=== PATIENT | female | born 1960 | race Caucasian/White ===

== ENCOUNTER 2018-09-27 17:10 | Emergency (ER) | payer OTHER ==
[2018-09-27] MEDS: SOD CHLORIDE 0.9% 1,000 ML IV (18:39)
[2018-09-27] MEDS: HYDROmorphONE 1 MG/ML SYG IV (18:39)
[2018-09-27] MEDS: ONDANSETRON 4 MG INJ IV (18:39)
[2018-09-27 18:53] LABS: ADD MAN DIFF? NO
[2018-09-27 18:56] LABS: BASOPHIL # 0.1 10^3/ul (0.0-0.1); EOSINOPHILS # 0.2 10^3/ul (0.0-0.5); EOSINOPHILS % 1.9 % (0.0-7.0); HEMATOCRIT 44.9 % (37.0-47.0); HEMOGLOBIN 13.8 g/dl (12.0-16.0); LYMPHOCYTES # 1.2 10^3/ul (0.8-2.9); LYMPHOCYTES % 14.6 % (15.0-51.0); MEAN CORPUSCULAR HEMOGLOBIN 25.7 pg (29.0-33.0); MEAN CORPUSCULAR HGB CONC 30.7 g/dl (32.0-37.0); MEAN CORPUSCULAR VOLUME 83.5 fl (82.0-101.0); MEAN PLATELET VOLUME 12.2 fl (7.4-10.4); MONOCYTE # 0.8 10^3/ul (0.3-0.9); MONOCYTES % 9.6 % (0.0-11.0); NEUTROPHIL # 6.1 10^3/ul (1.6-7.5); NEUTROPHILS % 72.4 % (39.0-77.0); PLATELET COUNT 232 10^3/UL (140-415); RED BLOOD COUNT 5.38 10^6/ul (4.20-5.40); RED CELL DISTRIBUTION WIDTH 14.1 % (11.5-14.5)
[2018-09-27 18:56] LABS: WHITE BLOOD COUNT 8.4 10^3/ul (4.8-10.8)
[2018-09-27 19:01] LABS: ADD UMIC NO; UR ASCORBIC ACID NEGATIVE (NEGATIVE); UR BILIRUBIN (Dip) NEGATIVE (NEGATIVE); UR BLOOD (Dip) NEGATIVE (NEGATIVE); UR CLARITY CLEAR (CLEAR); UR COLOR STRAW (YELLOW); UR GLUCOSE (Dip) 3+ mg/dL (NEGATIVE); UR KETONES (Dip) NEGATIVE (NEGATIVE); UR LEUKOCYTE ESTERASE (Dip) NEGATIVE Leu/ul (NEGATIVE); UR NITRITE (Dip) NEGATIVE (NEGATIVE); UR SPECIFIC GRAVITY (Dip) 1.006 (1.003-1.030); UR TOTAL PROTEIN (Dip) NEGATIVE (NEGATIVE); UR UROBILINOGEN (Dip) NEGATIVE (NEGATIVE)
[2018-09-27 19:16] LABS: ALANINE AMINOTRANSFERASE 28 IU/L (13-69); ALBUMIN 4.2 g/dl (3.3-4.9); ALBUMIN/GLOBULIN RATIO 1.23; ALKALINE PHOSPHATASE 141 IU/L (42-121); ANION GAP 12 (5-13); ASPARTATE AMINO TRANSFERASE 25 IU/L (15-46); BILIRUBIN,INDIRECT 0.2 mg/dl (0-1.1); BILIRUBIN,TOTAL 0.2 mg/dl (0.2-1.3); BLOOD UREA NITROGEN 16 mg/dl (7-20); CARBON DIOXIDE 32 mmol/L (21-31); CHLORIDE 103 mmol/L (97-110); CREATININE 0.81 mg/dl (0.44-1.00); Estimated GFR > 60 mL/min (>60); GLUCOSE 101 mg/dl (70-220); POTASSIUM 3.9 mmol/L (3.5-5.1); SODIUM 147 mmol/L (135-144); TOTAL PROTEIN 7.6 g/dl (6.1-8.1)
[2018-09-27] MEDS: SOD CHLORIDE 0.9% 100 ML (19:48)
[2018-09-27] MEDS: IOHEXOL 300MG/ML 150 ML BTL (19:48)
== END 2018-09-27 21:00 | disposition home or self-care (01) ==
LOC: E/R 17:10
DX: R19.03 Right lower quadrant abdominal swelling, mass and lump (principal); I10 Essential (primary) hypertension; Z79.82 Long term (current) use of aspirin
CPT/HCPCS: 36415; 74177; 80053; 81003; 85025; 96374; 96375; 99285-25

== ENCOUNTER 2018-11-20 09:39 | Emergency (ER) | payer OTHER ==
[2018-11-20] MEDS: ONDANSETRON 4 MG INJ IV (12:41)
[2018-11-20] MEDS: FAMOTIDINE 20 MG INJ IV (12:41)
[2018-11-20] MEDS: SOD CHLORIDE 0.9% 1,000 ML IV (12:41)
[2018-11-20] MEDS: morphine 4 MG/ML VIAL IV ×2 (12:42→13:43)
[2018-11-20 12:43] LABS: ADD MAN DIFF? NO
[2018-11-20 12:46] LABS: BASOPHIL # 0.1 10^3/ul (0.0-0.1); BASOPHILS % 0.6 % (0.0-2.0); EOSINOPHILS # 0.1 10^3/ul (0.0-0.5); EOSINOPHILS % 1.1 % (0.0-7.0); HEMATOCRIT 39.6 % (37.0-47.0); HEMOGLOBIN 12.4 g/dl (12.0-16.0); MEAN CORPUSCULAR HEMOGLOBIN 25.6 pg (29.0-33.0); MEAN CORPUSCULAR HGB CONC 31.3 g/dl (32.0-37.0); MEAN CORPUSCULAR VOLUME 81.6 fl (82.0-101.0); MEAN PLATELET VOLUME 11.8 fl (7.4-10.4); MONOCYTE # 0.9 10^3/ul (0.3-0.9); MONOCYTES % 10.6 % (0.0-11.0); NEUTROPHIL # 6.7 10^3/ul (1.6-7.5); NEUTROPHILS % 76.1 % (39.0-77.0); PLATELET COUNT 231 10^3/UL (140-415); RED BLOOD COUNT 4.85 10^6/ul (4.20-5.40); RED CELL DISTRIBUTION WIDTH 15.1 % (11.5-14.5)
[2018-11-20 12:46] LABS: WHITE BLOOD COUNT 8.8 10^3/ul (4.8-10.8)
[2018-11-20 12:53] LABS: ADD UMIC YES; UR ASCORBIC ACID NEGATIVE (NEGATIVE); UR BACTERIA FEW /HPF (NONE SEEN); UR BILIRUBIN (Dip) NEGATIVE (NEGATIVE); UR BLOOD (Dip) 2+ mg/dL (NEGATIVE); UR CLARITY CLEAR (CLEAR); UR COLOR STRAW (YELLOW); UR GLUCOSE (Dip) 3+ mg/dL (NEGATIVE); UR KETONES (Dip) NEGATIVE (NEGATIVE); UR LEUKOCYTE ESTERASE (Dip) NEGATIVE Leu/ul (NEGATIVE); UR NITRITE (Dip) NEGATIVE (NEGATIVE); UR RBC 6 /HPF (0-5); UR SPECIFIC GRAVITY (Dip) 1.008 (1.003-1.030); UR SQUAMOUS EPITHELIAL CELL FEW /HPF (FEW); UR TOTAL PROTEIN (Dip) NEGATIVE (NEGATIVE); UR UROBILINOGEN (Dip) NEGATIVE (NEGATIVE); UR WBC 2 /HPF (0-5)
[2018-11-20 13:05] LABS: ALANINE AMINOTRANSFERASE 50 IU/L (13-69); ALBUMIN 3.9 g/dl (3.3-4.9); ALBUMIN/GLOBULIN RATIO 1.05; ALKALINE PHOSPHATASE 135 IU/L (42-121); ANION GAP 9 (5-13); ASPARTATE AMINO TRANSFERASE 34 IU/L (15-46); BILIRUBIN,INDIRECT 0.3 mg/dl (0-1.1); BILIRUBIN,TOTAL 0.3 mg/dl (0.2-1.3); BLOOD UREA NITROGEN 24 mg/dl (7-20); CALCIUM 8.8 mg/dl (8.4-10.2); CARBON DIOXIDE 26 mmol/L (21-31); CHLORIDE 107 mmol/L (97-110); CREATININE 1.19 mg/dl (0.44-1.00); Estimated GFR 47 mL/min (>60); GLUCOSE 94 mg/dl (70-220); LIPASE 121 U/L (23-300); POTASSIUM 3.5 mmol/L (3.5-5.1); SODIUM 142 mmol/L (135-144); TOTAL PROTEIN 7.6 g/dl (6.1-8.1)
[2018-11-20] MEDS: SOD CHLORIDE 0.9% 100 ML (13:21)
[2018-11-20] MEDS: IODIXANOL LOCM 100 ML BTL (13:21)
== END 2018-11-20 16:15 | disposition home or self-care (01) ==
LOC: E/R 09:39
DX: R19.00 Intra-abdominal and pelvic swelling, mass and lump, unspecified site (principal); R33.9 Retention of urine, unspecified; I10 Essential (primary) hypertension; E11.9 Type 2 diabetes mellitus without complications; Z79.82 Long term (current) use of aspirin; Z85.43 Personal history of malignant neoplasm of ovary; Z85.42 Personal history of malignant neoplasm of other parts of uterus
CPT/HCPCS: 36415; 74177; 80053; 81001; 83690; 85025; 96374; 96375; 96376; 99285-25

== ENCOUNTER 2018-11-25 01:50 | Inpatient (IN) | payer OTHER ==
[2018-11-25 02:31] LABS: ADD MAN DIFF? NO
[2018-11-25 02:33] LABS: BASOPHILS % 0.3 % (0.0-2.0); EOSINOPHILS # 0.2 10^3/ul (0.0-0.5); EOSINOPHILS % 3.4 % (0.0-7.0); HEMATOCRIT 39.4 % (37.0-47.0); LYMPHOCYTES # 0.6 10^3/ul (0.8-2.9); LYMPHOCYTES % 8.5 % (15.0-51.0); MEAN CORPUSCULAR HEMOGLOBIN 25.4 pg (29.0-33.0); MEAN CORPUSCULAR HGB CONC 30.5 g/dl (32.0-37.0); MEAN CORPUSCULAR VOLUME 83.5 fl (82.0-101.0); MEAN PLATELET VOLUME 11.9 fl (7.4-10.4); MONOCYTE # 0.9 10^3/ul (0.3-0.9); MONOCYTES % 12.1 % (0.0-11.0); NEUTROPHIL # 5.3 10^3/ul (1.6-7.5); NEUTROPHILS % 75.3 % (39.0-77.0); PLATELET COUNT 218 10^3/UL (140-415); RED BLOOD COUNT 4.72 10^6/ul (4.20-5.40); RED CELL DISTRIBUTION WIDTH 15.2 % (11.5-14.5)
[2018-11-25 02:41] LABS: ADD UMIC YES; UR ASCORBIC ACID NEGATIVE (NEGATIVE); UR BACTERIA FEW /HPF (NONE SEEN); UR BILIRUBIN (Dip) NEGATIVE (NEGATIVE); UR BLOOD (Dip) 3+ mg/dL (NEGATIVE); UR CLARITY CLEAR (CLEAR); UR COLOR STRAW (YELLOW); UR GLUCOSE (Dip) 3+ mg/dL (NEGATIVE); UR KETONES (Dip) NEGATIVE (NEGATIVE); UR LEUKOCYTE ESTERASE (Dip) 2+ Leu/ul (NEGATIVE); UR NITRITE (Dip) NEGATIVE (NEGATIVE); UR RBC 83 /HPF (0-5); UR SPECIFIC GRAVITY (Dip) 1.005 (1.003-1.030); UR TOTAL PROTEIN (Dip) NEGATIVE (NEGATIVE); UR UROBILINOGEN (Dip) NEGATIVE (NEGATIVE); UR WBC 14 /HPF (0-5)
[2018-11-25] MEDS: morphine 4 MG/ML VIAL IV (02:46)
[2018-11-25] MEDS: ONDANSETRON 4 MG INJ IV (02:46)
[2018-11-25] MEDS: SOD CHLORIDE 0.9% 500 ML IV (02:46)
[2018-11-25 02:53] LABS: ALANINE AMINOTRANSFERASE 48 IU/L (13-69); ALBUMIN 3.9 g/dl (3.3-4.9); ALKALINE PHOSPHATASE 121 IU/L (42-121); ANION GAP 9 (5-13); ASPARTATE AMINO TRANSFERASE 30 IU/L (15-46); BILIRUBIN,INDIRECT 0.3 mg/dl (0-1.1); BILIRUBIN,TOTAL 0.3 mg/dl (0.2-1.3); BLOOD UREA NITROGEN 22 mg/dl (7-20); CALCIUM 8.8 mg/dl (8.4-10.2); CARBON DIOXIDE 27 mmol/L (21-31); CHLORIDE 108 mmol/L (97-110); CREATININE 2.06 mg/dl (0.44-1.00); Estimated GFR 25 mL/min (>60); GLUCOSE 108 mg/dl (70-220); LIPASE 61 U/L (23-300); POTASSIUM 4.3 mmol/L (3.5-5.1); SODIUM 144 mmol/L (135-144); TOTAL PROTEIN 7.8 g/dl (6.1-8.1)
[2018-11-25] MEDS: LEVOFLOXACIN 500MG/D5W (PMX) 100 ML IVPB (04:36)
[2018-11-25] MEDS ORDERED: ONDANSETRON 4 MG INJ IV (11:00)
[2018-11-25] MEDS ORDERED: NACL 0.9% 3 ML SYG IV ×2 (11:00)
[2018-11-25] MEDS ORDERED: FAMOTIDINE 20 MG TAB PO (11:00)
[2018-11-25] MEDS ORDERED: ACETAMINOPHEN 325 MG TAB PO (11:00)
[2018-11-25] MEDS ORDERED: INSULIN ASPART [NOVOLOG] 3 ML PEN SC ×3 (12:00→13:00)
[2018-11-25] MEDS: INSULIN ASPART [NOVOLOG] 3 ML PEN SC ×3 (12:00→20:34)
[2018-11-25] MEDS: FAMOTIDINE 20 MG TAB PO (12:13)
[2018-11-25] MEDS: SOD CHLORIDE 0.9% 1,000 ML IV (12:14)
[2018-11-25] MEDS ORDERED: GLUCAGON 1 MG INJ IM (12:30)
[2018-11-25] MEDS ORDERED: GLUCOSE GEL 15 GRAM TUBE PO ×2 (12:30)
[2018-11-25] MEDS ORDERED: DEXTROSE 50% 50 ML SYRINGE IV ×2 (12:30)
[2018-11-25] MEDS ORDERED: GLUCOSE GEL 15 GRAM TUBE BUCCAL (12:30)
[2018-11-25 12:37] LABS: CANCER ANTIGEN 125 28.7 U/ml (0.0-35.0)
[2018-11-25 15:41] LABS: CREATININE,URINE RANDOM 35.09 mg/dl (20-320); PROTEIN/CREAT RATIO 1.13 RATIO
[2018-11-25] MEDS: morphine 2 MG INJ IV (15:56)
[2018-11-25 16:10] LABS: SODIUM,URINE RANDOM 94 mmol/L (30-90)
[2018-11-26] MEDS: SOD CHLORIDE 0.9% 1,000 ML IV ×3 (00:11→13:42)
[2018-11-26] MEDS: ACCU-CHEK XX (02:00)
[2018-11-26 07:27] LABS: HEMOGLOBIN A1C 5.8 % (0-5.9)
[2018-11-26 07:31] LABS: ANION GAP 7 (5-13); BLOOD UREA NITROGEN 18 mg/dl (7-20); CALCIUM 8.5 mg/dl (8.4-10.2); CARBON DIOXIDE 25 mmol/L (21-31); CHLORIDE 113 mmol/L (97-110); CREATININE 1.82 mg/dl (0.44-1.00); Estimated GFR 29 mL/min (>60); GLUCOSE 92 mg/dl (70-220); POTASSIUM 4.6 mmol/L (3.5-5.1); SODIUM 145 mmol/L (135-144)
[2018-11-26 07:31] LABS: URIC ACID 6.3 mg/dl (3.1-7.9)
[2018-11-26 07:34] LABS: CREATINE KINASE 23 IU/L (23-200)
[2018-11-26] MEDS: INSULIN ASPART [NOVOLOG] 3 ML PEN SC ×4 (08:00→20:48)
[2018-11-26] MEDS: FAMOTIDINE 20 MG TAB PO (08:48)
[2018-11-26] MEDS: POLYETHYLENE GLYCOL 17 GM PACKET PO ×2 (09:08→20:48)
[2018-11-26] MEDS: morphine 2 MG INJ IV ×2 (11:56→23:07)
[2018-11-26] MEDS: DOCUSATE SODIUM 100 MG CAP PO (18:16)
[2018-11-27] MEDS: ACCU-CHEK XX (02:00)
[2018-11-27] MEDS: SOD CHLORIDE 0.9% 1,000 ML IV ×2 (03:27→16:19)
[2018-11-27] MEDS: INSULIN ASPART [NOVOLOG] 3 ML PEN SC ×4 (08:00→20:41)
[2018-11-27] MEDS: FAMOTIDINE 20 MG TAB PO (08:43)
[2018-11-27] MEDS: POLYETHYLENE GLYCOL 17 GM PACKET PO ×2 (08:43→20:40)
[2018-11-27 08:49] LABS: ANION GAP 9 (5-13); BLOOD UREA NITROGEN 16 mg/dl (7-20); CALCIUM 8.4 mg/dl (8.4-10.2); CARBON DIOXIDE 24 mmol/L (21-31); CHLORIDE 112 mmol/L (97-110); CREATININE 1.94 mg/dl (0.44-1.00); Estimated GFR 27 mL/min (>60); GLUCOSE 94 mg/dl (70-220); POTASSIUM 4.3 mmol/L (3.5-5.1); SODIUM 145 mmol/L (135-144)
[2018-11-27] MEDS: morphine 2 MG INJ IV ×3 (10:11→21:13)
[2018-11-28] MEDS: ACCU-CHEK XX (02:00)
[2018-11-28 05:26] LABS: ANION GAP 9 (5-13); BLOOD UREA NITROGEN 17 mg/dl (7-20); CALCIUM 8.4 mg/dl (8.4-10.2); CARBON DIOXIDE 24 mmol/L (21-31); CHLORIDE 111 mmol/L (97-110); CREATININE 1.94 mg/dl (0.44-1.00); Estimated GFR 27 mL/min (>60); GLUCOSE 108 mg/dl (70-220); SODIUM 144 mmol/L (135-144)
[2018-11-28] MEDS: SOD CHLORIDE 0.9% 1,000 ML IV (05:28)
[2018-11-28] MEDS ORDERED: CEFAZOLIN 1 GM INJ (07:00)
[2018-11-28] MEDS ORDERED: DEXAMETHASONE 4 MG/ML 5 ML INJ (07:00)
[2018-11-28] MEDS ORDERED: METOCLOPRAMIDE 10 MG INJ (07:00)
[2018-11-28] MEDS ORDERED: ONDANSETRON 4 MG INJ (07:00)
[2018-11-28] MEDS: INSULIN ASPART [NOVOLOG] 3 ML PEN SC ×4 (08:00→21:00)
[2018-11-28] MEDS: POLYETHYLENE GLYCOL 17 GM PACKET PO ×2 (09:00→21:13)
[2018-11-28] MEDS: FAMOTIDINE 20 MG TAB PO (09:00)
[2018-11-28] MEDS: morphine 2 MG INJ IV ×3 (11:13→21:17)
[2018-11-28] MEDS ORDERED: FENTAnyl 50 MCG/ML VIAL (12:21)
[2018-11-28] MEDS ORDERED: MIDAZOLAM 1 MG/ML 2 ML INJ (12:22)
[2018-11-28] MEDS ORDERED: PROPOFOL 20 ML (12:28)
[2018-11-28] MEDS ORDERED: LIDOCAINE 2% (SDV) 5 ML INJ (12:28)
[2018-11-28] MEDS ORDERED: ONDANSETRON 4 MG INJ IV (12:30)
[2018-11-28] MEDS ORDERED: LABETALOL HCL 20MG INJ IV (12:30)
[2018-11-28] MEDS ORDERED: DIPHENHYDRAMINE 50 MG INJ IV (12:30)
[2018-11-28] MEDS ORDERED: LEVALBUTEROL (NEB) 1.25 MG/0.5 ML AMP HHN (12:30)
[2018-11-28] MEDS ORDERED: HYDROmorphONE 1 MG/5 ML IV SYRINGE IV ×3 (12:30)
[2018-11-28] MEDS ORDERED: FENTAnyl 50 MCG/ML VIAL IV (12:30)
[2018-11-28] MEDS ORDERED: IOHEXOL 300MG/ML 30 ML BTL (12:35)
[2018-11-28] MEDS: IOHEXOL 300MG/ML 30 ML BTL INJ (12:45)
[2018-11-28] MEDS: hydrALAzine 20 MG INJ IV (14:15)
[2018-11-28] MEDS: FENTAnyl 50 MCG/ML VIAL IV (15:07)
[2018-11-29] MEDS: ACCU-CHEK XX (02:00)
[2018-11-29] MEDS: SOD CHLORIDE 0.9% 1,000 ML IV ×3 (04:07→18:33)
[2018-11-29] MEDS: morphine 2 MG INJ IV ×2 (05:54→15:26)
[2018-11-29 07:31] LABS: ANION GAP 10 (5-13); BLOOD UREA NITROGEN 18 mg/dl (7-20); CALCIUM 8.4 mg/dl (8.4-10.2); CARBON DIOXIDE 24 mmol/L (21-31); CHLORIDE 109 mmol/L (97-110); CREATININE 1.77 mg/dl (0.44-1.00); Estimated GFR 30 mL/min (>60); GLUCOSE 107 mg/dl (70-220); SODIUM 143 mmol/L (135-144)
[2018-11-29] MEDS: INSULIN ASPART [NOVOLOG] 3 ML PEN SC ×4 (08:00→20:29)
[2018-11-29] MEDS: POLYETHYLENE GLYCOL 17 GM PACKET PO ×2 (08:18→20:29)
[2018-11-29] MEDS: FAMOTIDINE 20 MG TAB PO (08:18)
[2018-11-30] MEDS: morphine 2 MG INJ IV ×3 (01:09→17:02)
[2018-11-30] MEDS: ACCU-CHEK XX (02:00)
[2018-11-30] MEDS: INSULIN ASPART [NOVOLOG] 3 ML PEN SC ×4 (08:00→20:42)
[2018-11-30] MEDS: FAMOTIDINE 20 MG TAB PO (08:27)
[2018-11-30] MEDS: POLYETHYLENE GLYCOL 17 GM PACKET PO ×2 (08:28→20:44)
[2018-11-30] MEDS: SOD CHLORIDE 0.9% 1,000 ML IV ×2 (08:30→22:30)
[2018-11-30] MEDS: HYDROCODONE/APAP (5/325) TAB PO (12:24)
[2018-11-30] MEDS: MAGNESIUM CITRATE 300 ML BTL PO (13:25)
[2018-11-30] MEDS: ONDANSETRON 4 MG INJ IV (16:58)
[2018-12-01] MEDS: morphine 2 MG INJ IV ×2 (01:18→11:48)
[2018-12-01] MEDS: ACCU-CHEK XX (02:00)
[2018-12-01] MEDS ORDERED: ROCURONIUM 50 MG INJ ×2 (07:00→19:09)
[2018-12-01] MEDS: INSULIN ASPART [NOVOLOG] 3 ML PEN SC ×3 (08:00→17:17)
[2018-12-01] MEDS: FAMOTIDINE 20 MG TAB PO (08:55)
[2018-12-01] MEDS: POLYETHYLENE GLYCOL 17 GM PACKET PO ×2 (08:56→21:00)
[2018-12-01] MEDS: DEXTROSE 5%-0.45% NACL 1,000 ML IV (11:48)
[2018-12-01] MEDS: HYDROCODONE/APAP (5/325) TAB PO (12:49)
[2018-12-01] MEDS ORDERED: VASOPRESSIN 20 UNITS INJ (16:42)
[2018-12-01] MEDS ORDERED: FENTAnyl 50 MCG/ML VIAL (18:19)
[2018-12-01] MEDS ORDERED: MIDAZOLAM 1 MG/ML 2 ML INJ (18:19)
[2018-12-01] MEDS ORDERED: METOCLOPRAMIDE 10 MG INJ IV (18:30)
[2018-12-01] MEDS ORDERED: FENTAnyl 50 MCG/ML VIAL IV ×2 (18:30)
[2018-12-01] MEDS ORDERED: MEPERIDINE 25 MG INJ IV (18:30)
[2018-12-01] MEDS ORDERED: DIPHENHYDRAMINE 50 MG INJ IV ×2 (18:30→21:00)
[2018-12-01] MEDS ORDERED: ONDANSETRON 4 MG INJ IV (18:30)
[2018-12-01] MEDS ORDERED: ALBUTEROL 0.083% (NEB) 2.5 MG/3 ML AMP HHN (18:30)
[2018-12-01] MEDS ORDERED: HYDROmorphONE 1 MG/5 ML IV SYRINGE IV ×3 (18:30)
[2018-12-01] MEDS ORDERED: ROPIVACAINE 0.2% 20 ML VIAL ×2 (18:45→20:13)
[2018-12-01] MEDS ORDERED: LABETALOL HCL 20MG INJ (19:05)
[2018-12-01] MEDS ORDERED: morphine SULFATE/PF (10 MG/10 ML) INJ (19:07)
[2018-12-01] MEDS ORDERED: CEFAZOLIN 1 GM INJ (19:09)
[2018-12-01] MEDS ORDERED: PROPOFOL 20 ML (19:09)
[2018-12-01] MEDS ORDERED: GLYCOPYRROLATE 0.4 MG INJ (19:09)
[2018-12-01] MEDS ORDERED: SUCCINYLCHOLINE CHLORIDE 100 MG/5 ML SYG IV (19:09)
[2018-12-01] MEDS ORDERED: LIDOCAINE 100 MG SYRINGE (19:09)
[2018-12-01] MEDS ORDERED: NEOSTIGMINE 3 MG/3 ML SYRINGE (19:09)
[2018-12-01] MEDS ORDERED: hydrALAzine 20 MG INJ (19:22)
[2018-12-01] MEDS ORDERED: metroNIDAZOLE 500 MG/NS (PMX) 100 ML IVPB (20:21)
[2018-12-01] MEDS ORDERED: SUGAMMADEX SODIUM 200 MG/2 ML VIAL IV (20:27)
[2018-12-01] MEDS ORDERED: PROVENTIL HFA 6.7GM INHALER (20:32)
[2018-12-01] MEDS ORDERED: INSULIN ASPART [NOVOLOG] 3 ML PEN SC (21:00)
[2018-12-01] MEDS: Insulin NOVOLOG SS MILD Algorithm (NPO/TPN/ENTERAL FEEDS) SC (21:00)
[2018-12-01] MEDS ORDERED: HYDROCODONE/APAP (5/325) TAB PO (21:00)
[2018-12-01 21:03] LABS: ADD MAN DIFF? NO
[2018-12-01 21:07] LABS: WHITE BLOOD COUNT 9.1 10^3/ul (4.8-10.8)
[2018-12-01 21:07] LABS: BASOPHILS % 0.4 % (0.0-2.0); EOSINOPHILS # 0.1 10^3/ul (0.0-0.5); EOSINOPHILS % 1.5 % (0.0-7.0); HEMATOCRIT 33.6 % (37.0-47.0); HEMOGLOBIN 10.4 g/dl (12.0-16.0); LYMPHOCYTES # 0.7 10^3/ul (0.8-2.9); LYMPHOCYTES % 7.9 % (15.0-51.0); MEAN CORPUSCULAR HEMOGLOBIN 25.6 pg (29.0-33.0); MEAN CORPUSCULAR VOLUME 82.6 fl (82.0-101.0); MEAN PLATELET VOLUME 11.1 fl (7.4-10.4); MONOCYTE # 0.6 10^3/ul (0.3-0.9); MONOCYTES % 6.8 % (0.0-11.0); NEUTROPHIL # 7.5 10^3/ul (1.6-7.5); NEUTROPHILS % 82.5 % (39.0-77.0); PLATELET COUNT 111 10^3/UL (140-415); RED BLOOD COUNT 4.07 10^6/ul (4.20-5.40); RED CELL DISTRIBUTION WIDTH 14.7 % (11.5-14.5)
[2018-12-01 21:24] LABS: ANION GAP 5 (5-13); BLOOD UREA NITROGEN 14 mg/dl (7-20); CALCIUM 7.2 mg/dl (8.4-10.2); CARBON DIOXIDE 24 mmol/L (21-31); CHLORIDE 109 mmol/L (97-110); CREATININE 0.84 mg/dl (0.44-1.00); Estimated GFR > 60 mL/min (>60); GLUCOSE 120 mg/dl (70-220); POTASSIUM 3.1 mmol/L (3.5-5.1); SODIUM 138 mmol/L (135-144)
[2018-12-01] MEDS: D5-NS + KCL 20 MEQ 1,000 ML IV (22:47)
[2018-12-01] MEDS: CEFAZOLIN 2 GM/50 ML (PMX) 50 ML IVPB (22:48)
[2018-12-01] MEDS: metroNIDAZOLE 500 MG/NS (PMX) 100 ML IVPB (23:44)
[2018-12-01] MEDS: ONDANSETRON 4 MG INJ IV (23:48)
[2018-12-02] MEDS: Insulin NOVOLOG SS MILD Algorithm (NPO/TPN/ENTERAL FEEDS) SC ×6 (01:00→20:49)
[2018-12-02] MEDS: morphine 2 MG INJ IV ×7 (01:07→20:37)
[2018-12-02] MEDS: ACCU-CHEK XX (02:00)
[2018-12-02] MEDS: metroNIDAZOLE 500 MG/NS (PMX) 100 ML IVPB ×2 (05:43→13:57)
[2018-12-02] MEDS: D5-NS + KCL 20 MEQ 1,000 ML IV ×4 (06:00→19:27)
[2018-12-02 06:09] LABS: ADD MAN DIFF? NO
[2018-12-02 06:16] LABS: ABNORMAL IP MESSAGE 1; BASOPHIL # 0.1 10^3/ul (0.0-0.1); BASOPHILS % 0.6 % (0.0-2.0); EOSINOPHILS # 0.1 10^3/ul (0.0-0.5); EOSINOPHILS % 0.8 % (0.0-7.0); HEMATOCRIT 37.3 % (37.0-47.0); HEMOGLOBIN 11.4 g/dl (12.0-16.0); LYMPHOCYTES # 0.5 10^3/ul (0.8-2.9); LYMPHOCYTES % 6.4 % (15.0-51.0); MEAN CORPUSCULAR HEMOGLOBIN 25.5 pg (29.0-33.0); MEAN CORPUSCULAR HGB CONC 30.6 g/dl (32.0-37.0); MEAN CORPUSCULAR VOLUME 83.4 fl (82.0-101.0); MEAN PLATELET VOLUME 11.9 fl (7.4-10.4); MONOCYTE # 0.9 10^3/ul (0.3-0.9); MONOCYTES % 10.9 % (0.0-11.0); NEUTROPHIL # 6.7 10^3/ul (1.6-7.5); NEUTROPHILS % 80.6 % (39.0-77.0); PLATELET COUNT 101 10^3/UL (140-415); RED BLOOD COUNT 4.47 10^6/ul (4.20-5.40); RED CELL DISTRIBUTION WIDTH 14.6 % (11.5-14.5)
[2018-12-02 06:16] LABS: WHITE BLOOD COUNT 8.3 10^3/ul (4.8-10.8)
[2018-12-02] MEDS: CEFAZOLIN 2 GM/50 ML (PMX) 50 ML IVPB ×2 (06:20→13:04)
[2018-12-02 06:23] LABS: POSITIVE DIFF @See below
[2018-12-02 07:06] LABS: ALANINE AMINOTRANSFERASE 17 IU/L (13-69); ALBUMIN 2.6 g/dl (3.3-4.9); ALBUMIN/GLOBULIN RATIO 0.89; ALKALINE PHOSPHATASE 70 IU/L (42-121); ANION GAP 8 (5-13); ASPARTATE AMINO TRANSFERASE 18 IU/L (15-46); BILIRUBIN,INDIRECT 0.1 mg/dl (0-1.1); BILIRUBIN,TOTAL 0.1 mg/dl (0.2-1.3); BLOOD UREA NITROGEN 12 mg/dl (7-20); CALCIUM 7.4 mg/dl (8.4-10.2); CARBON DIOXIDE 27 mmol/L (21-31); CHLORIDE 106 mmol/L (97-110); CREATININE 0.98 mg/dl (0.44-1.00); Estimated GFR 58 mL/min (>60); GLUCOSE 169 mg/dl (70-220); POTASSIUM 3.6 mmol/L (3.5-5.1); SODIUM 141 mmol/L (135-144); TOTAL PROTEIN 5.5 g/dl (6.1-8.1)
[2018-12-02] MEDS: FAMOTIDINE 20 MG INJ IV (08:36)
[2018-12-02] MEDS: POLYETHYLENE GLYCOL 17 GM PACKET PO ×2 (08:37→20:39)
[2018-12-02] MEDS: HYDROCODONE/APAP (10/325) TAB PO (08:37)
[2018-12-02] MEDS: morphine LIQ (10 MG/5 ML) CUP PO ×2 (17:31→22:49)
[2018-12-03] MEDS: morphine 2 MG INJ IV ×6 (01:07→19:36)
[2018-12-03] MEDS: Insulin NOVOLOG SS MILD Algorithm (NPO/TPN/ENTERAL FEEDS) SC ×6 (01:09→20:43)
[2018-12-03] MEDS: ACCU-CHEK XX (02:00)
[2018-12-03] MEDS: morphine LIQ (10 MG/5 ML) CUP PO ×2 (03:13→16:29)
[2018-12-03] MEDS: D5-NS + KCL 20 MEQ 1,000 ML IV ×3 (05:01→22:14)
[2018-12-03] MEDS: ENOXAPARIN 40 MG/0.4 ML SYG SC (06:09)
[2018-12-03] MEDS: POLYETHYLENE GLYCOL 17 GM PACKET PO ×2 (09:24→20:36)
[2018-12-03] MEDS: FAMOTIDINE 20 MG INJ IV (09:25)
[2018-12-03] MEDS: FAMOTIDINE 20 MG TAB PO (20:37)
[2018-12-04] MEDS: morphine 2 MG INJ IV ×5 (00:14→23:26)
[2018-12-04] MEDS: ACETAMINOPHEN 325 MG TAB PO (00:23)
[2018-12-04] MEDS: Insulin NOVOLOG SS MILD Algorithm (NPO/TPN/ENTERAL FEEDS) SC ×3 (00:39→08:38)
[2018-12-04] MEDS: ACCU-CHEK XX (02:00)
[2018-12-04] MEDS: D5-NS + KCL 20 MEQ 1,000 ML IV ×2 (05:50→18:47)
[2018-12-04] MEDS: ENOXAPARIN 40 MG/0.4 ML SYG SC (06:07)
[2018-12-04 07:21] LABS: ADD MAN DIFF? NO
[2018-12-04 07:27] LABS: WHITE BLOOD COUNT 11.1 10^3/ul (4.8-10.8)
[2018-12-04 07:27] LABS: ABNORMAL IP MESSAGE 1; BASOPHILS % 0.4 % (0.0-2.0); EOSINOPHILS # 0.3 10^3/ul (0.0-0.5); EOSINOPHILS % 2.3 % (0.0-7.0); HEMATOCRIT 28.6 % (37.0-47.0); HEMOGLOBIN 8.9 g/dl (12.0-16.0); LYMPHOCYTES # 0.8 10^3/ul (0.8-2.9); LYMPHOCYTES % 6.9 % (15.0-51.0); MEAN CORPUSCULAR HEMOGLOBIN 25.1 pg (29.0-33.0); MEAN CORPUSCULAR HGB CONC 31.1 g/dl (32.0-37.0); MEAN CORPUSCULAR VOLUME 80.8 fl (82.0-101.0); MEAN PLATELET VOLUME 12.6 fl (7.4-10.4); MONOCYTE # 0.9 10^3/ul (0.3-0.9); MONOCYTES % 7.7 % (0.0-11.0); NEUTROPHIL # 9.1 10^3/ul (1.6-7.5); NEUTROPHILS % 82.3 % (39.0-77.0); PLATELET COUNT 85 10^3/UL (140-415); RED BLOOD COUNT 3.54 10^6/ul (4.20-5.40); RED CELL DISTRIBUTION WIDTH 14.8 % (11.5-14.5)
[2018-12-04 07:32] LABS: POSITIVE DIFF @See below
[2018-12-04 07:50] LABS: PARTIAL THROMBOPLASTIN TIME 34.3 Sec (23.0-35.0)
[2018-12-04 07:53] LABS: ALANINE AMINOTRANSFERASE 11 IU/L (13-69); ALBUMIN 2.4 g/dl (3.3-4.9); ALBUMIN/GLOBULIN RATIO 0.92; ALKALINE PHOSPHATASE 61 IU/L (42-121); ANION GAP 4 (5-13); ASPARTATE AMINO TRANSFERASE 17 IU/L (15-46); BILIRUBIN,INDIRECT 0.2 mg/dl (0-1.1); BILIRUBIN,TOTAL 0.2 mg/dl (0.2-1.3); BLOOD UREA NITROGEN 4 mg/dl (7-20); CALCIUM 6.9 mg/dl (8.4-10.2); CARBON DIOXIDE 29 mmol/L (21-31); CHLORIDE 107 mmol/L (97-110); CREATININE 0.79 mg/dl (0.44-1.00); Estimated GFR > 60 mL/min (>60); GLUCOSE 115 mg/dl (70-220); POTASSIUM 3.1 mmol/L (3.5-5.1); SODIUM 140 mmol/L (135-144)
[2018-12-04 07:54] LABS: MAGNESIUM 1.3 mg/dl (1.7-2.5)
[2018-12-04 07:58] LABS: INR 1.29; PROTIME 16.2 Sec (11.9-14.9); PT RATIO 1.3
[2018-12-04] MEDS: FAMOTIDINE 20 MG TAB PO ×2 (08:38→21:09)
[2018-12-04] MEDS: POLYETHYLENE GLYCOL 17 GM PACKET PO ×2 (08:38→21:09)
[2018-12-04] MEDS: POTASSIUM CHLORIDE (SR) 20 MEQ TAB PO ×2 (09:18→21:09)
[2018-12-04] MEDS: INSULIN ASPART [NOVOLOG] 3 ML PEN SC ×3 (12:10→21:00)
[2018-12-04] MEDS: DOCUSATE SODIUM 100 MG CAP PO (12:44)
[2018-12-04] MEDS: ONDANSETRON 4 MG INJ IV (12:51)
[2018-12-04] MEDS: MAGNESIUM SULFATE 6 GM in DEXTROSE 5% 100 ML IVPB (13:17)
[2018-12-04] MEDS: HYDROCODONE/APAP (10/325) TAB PO (17:22)
[2018-12-04] MEDS ORDERED: POTASSIUM CHLORIDE 20 MEQ in DEXTROSE 5%-0.9% NACL 1,000 ML IV (22:00)
[2018-12-05] MEDS: ACCU-CHEK XX (01:59)
[2018-12-05] MEDS: D5-NS + KCL 20 MEQ 1,000 ML IV ×4 (03:52→17:21)
[2018-12-05] MEDS: morphine 2 MG INJ IV ×4 (03:52→23:04)
[2018-12-05 07:49] LABS: ANION GAP 6 (5-13); BLOOD UREA NITROGEN 5 mg/dl (7-20); CALCIUM 6.9 mg/dl (8.4-10.2); CARBON DIOXIDE 29 mmol/L (21-31); CHLORIDE 109 mmol/L (97-110); CREATININE 0.74 mg/dl (0.44-1.00); Estimated GFR > 60 mL/min (>60); GLUCOSE 139 mg/dl (70-220); MAGNESIUM 2.3 mg/dl (1.7-2.5); POTASSIUM 3.9 mmol/L (3.5-5.1); SODIUM 144 mmol/L (135-144)
[2018-12-05] MEDS: FAMOTIDINE 20 MG TAB PO ×2 (08:04→20:48)
[2018-12-05] MEDS: HYDROCODONE/APAP (10/325) TAB PO (08:04)
[2018-12-05] MEDS: INSULIN ASPART [NOVOLOG] 3 ML PEN SC ×4 (08:09→20:57)
[2018-12-05] MEDS: POLYETHYLENE GLYCOL 17 GM PACKET PO ×2 (09:34→20:48)
[2018-12-05] MEDS: POTASSIUM CHLORIDE 100 ML IVPB (09:53)
[2018-12-06] MEDS: ACCU-CHEK XX (01:57)
[2018-12-06] MEDS: morphine 2 MG INJ IV (05:22)
[2018-12-06] MEDS: D5-NS + KCL 20 MEQ 1,000 ML IV ×2 (05:25→18:21)
[2018-12-06] MEDS: POLYETHYLENE GLYCOL 17 GM PACKET PO ×3 (08:35→19:46)
[2018-12-06] MEDS: FAMOTIDINE 20 MG TAB PO ×2 (08:35→19:46)
[2018-12-06] MEDS: INSULIN ASPART [NOVOLOG] 3 ML PEN SC ×4 (08:36→21:00)
[2018-12-06] MEDS: HYDROCODONE/APAP (10/325) TAB PO ×2 (08:36→19:49)
[2018-12-06] MEDS: ACETAMINOPHEN 325 MG TAB PO (16:09)
[2018-12-06] MEDS: ZOLPIDEM 5 MG TAB PO (23:12)
[2018-12-07] MEDS: ACCU-CHEK XX (03:00)
[2018-12-07] MEDS: D5-NS + KCL 20 MEQ 1,000 ML IV ×2 (05:00→17:09)
[2018-12-07 06:40] LABS: ADD MAN DIFF? NO
[2018-12-07 06:41] LABS: BASOPHIL # 0.1 10^3/ul (0.0-0.1); BASOPHILS % 1.1 % (0.0-2.0); EOSINOPHILS # 0.3 10^3/ul (0.0-0.5); EOSINOPHILS % 5.2 % (0.0-7.0); HEMATOCRIT 29.9 % (37.0-47.0); HEMOGLOBIN 9.3 g/dl (12.0-16.0); LYMPHOCYTES # 0.9 10^3/ul (0.8-2.9); LYMPHOCYTES % 15.6 % (15.0-51.0); MEAN CORPUSCULAR HEMOGLOBIN 25.5 pg (29.0-33.0); MEAN CORPUSCULAR HGB CONC 31.1 g/dl (32.0-37.0); MEAN CORPUSCULAR VOLUME 81.9 fl (82.0-101.0); MONOCYTE # 0.6 10^3/ul (0.3-0.9); MONOCYTES % 10.4 % (0.0-11.0); NEUTROPHIL # 3.7 10^3/ul (1.6-7.5); NEUTROPHILS % 65.9 % (39.0-77.0); PLATELET COUNT 168 10^3/UL (140-415); RED BLOOD COUNT 3.65 10^6/ul (4.20-5.40); RED CELL DISTRIBUTION WIDTH 14.7 % (11.5-14.5)
[2018-12-07 06:41] LABS: WHITE BLOOD COUNT 5.6 10^3/ul (4.8-10.8)
[2018-12-07 07:09] LABS: ANION GAP 8 (5-13); BLOOD UREA NITROGEN 7 mg/dl (7-20); CARBON DIOXIDE 27 mmol/L (21-31); CHLORIDE 107 mmol/L (97-110); CREATININE 0.79 mg/dl (0.44-1.00); Estimated GFR > 60 mL/min (>60); GLUCOSE 113 mg/dl (70-220); POTASSIUM 3.9 mmol/L (3.5-5.1); SODIUM 142 mmol/L (135-144)
[2018-12-07] MEDS: POLYETHYLENE GLYCOL 17 GM PACKET PO ×2 (09:00→20:37)
[2018-12-07] MEDS: FAMOTIDINE 20 MG TAB PO ×2 (09:06→20:36)
[2018-12-07] MEDS: INSULIN ASPART [NOVOLOG] 3 ML PEN SC ×4 (09:09→20:38)
[2018-12-07] MEDS: HYDROCODONE/APAP (10/325) TAB PO ×3 (10:17→23:44)
[2018-12-07] MEDS: morphine LIQ (10 MG/5 ML) CUP PO (13:25)
[2018-12-08] MEDS: morphine LIQ (10 MG/5 ML) CUP PO (00:46)
[2018-12-08] MEDS: ACCU-CHEK XX (01:20)
[2018-12-08] MEDS: ZOLPIDEM 5 MG TAB PO (01:37)
[2018-12-08] MEDS: D5-NS + KCL 20 MEQ 1,000 ML IV (05:37)
[2018-12-08] MEDS: INSULIN ASPART [NOVOLOG] 3 ML PEN SC (07:00)
[2018-12-08] MEDS: HYDROCODONE/APAP (10/325) TAB PO (08:51)
[2018-12-08] MEDS: POLYETHYLENE GLYCOL 17 GM PACKET PO (08:52)
[2018-12-08] MEDS: FAMOTIDINE 20 MG TAB PO (08:53)
== END 2018-12-08 10:50 | disposition home or self-care (01) | DRG 749 ==
LOC: E/R 01:50 → 5EC 10:49
PROC: 0DB80ZZ Excision of Small Intestine, Open Approach (ICD-10-PCS; principal; 2018-11-28 12:27)
PROC: 0DNU0ZZ Release Omentum, Open Approach (ICD-10-PCS; 2018-11-28 12:27)
PROC: 0T788DZ Dilation of Bilateral Ureters with Intraluminal Device, Via Natural or Artificial Opening Endoscopic (ICD-10-PCS; 2018-11-28 12:27)
PROC: 0TNB0ZZ Release Bladder, Open Approach (ICD-10-PCS; 2018-11-28 12:27)
PROC: 0DNN0ZZ Release Sigmoid Colon, Open Approach (ICD-10-PCS; 2018-11-28 12:27)
DX: C56.9 Malignant neoplasm of unspecified ovary (principal); N17.9 Acute kidney failure, unspecified; C78.6 Secondary malignant neoplasm of retroperitoneum and peritoneum; K56.7 Ileus, unspecified; N13.1 Hydronephrosis with ureteral stricture, not elsewhere classified; I10 Essential (primary) hypertension; E11.9 Type 2 diabetes mellitus without complications; Z85.42 Personal history of malignant neoplasm of other parts of uterus; Z85.43 Personal history of malignant neoplasm of ovary; K66.8 Other specified disorders of peritoneum; R33.8 Other retention of urine; K66.0 Peritoneal adhesions (postprocedural) (postinfection)
CPT/HCPCS: 36415; 74430; 76775; 80048; 80053; 81001; 81003; 82550; 82570; 82962; 83036; 83690; 83735; 84300; 84560; 85025; 85610; 85730; 86304; 86850; 86900; 86901; 87086; 88304; 88307; 88331; 88341; 88342; 89190; 96374; 96375; 97110; 97116; 97162; 99285-25

== ENCOUNTER 2019-01-05 19:49 | Inpatient (IN) | payer OTHER ==
[2019-01-05] MEDS: morphine 4 MG/ML VIAL IV (22:09)
[2019-01-05] MEDS: ONDANSETRON 4 MG INJ IV (22:09)
[2019-01-05] MEDS: SOD CHLORIDE 0.9% 500 ML IV (22:09)
[2019-01-05 22:23] LABS: ADD MAN DIFF? NO
[2019-01-05 22:27] LABS: BASOPHILS % 0.4 % (0.0-2.0); EOSINOPHILS # 0.2 10^3/ul (0.0-0.5); EOSINOPHILS % 2.9 % (0.0-7.0); HEMATOCRIT 39.8 % (37.0-47.0); HEMOGLOBIN 12.3 g/dl (12.0-16.0); LYMPHOCYTES # 1.4 10^3/ul (0.8-2.9); LYMPHOCYTES % 18.9 % (15.0-51.0); MEAN CORPUSCULAR HEMOGLOBIN 25.8 pg (29.0-33.0); MEAN CORPUSCULAR HGB CONC 30.9 g/dl (32.0-37.0); MEAN CORPUSCULAR VOLUME 83.6 fl (82.0-101.0); MEAN PLATELET VOLUME 11.4 fl (7.4-10.4); MONOCYTE # 0.7 10^3/ul (0.3-0.9); NEUTROPHIL # 5.2 10^3/ul (1.6-7.5); NEUTROPHILS % 68.3 % (39.0-77.0); PLATELET COUNT 263 10^3/UL (140-415); RED BLOOD COUNT 4.76 10^6/ul (4.20-5.40); RED CELL DISTRIBUTION WIDTH 16.6 % (11.5-14.5)
[2019-01-05 22:27] LABS: WHITE BLOOD COUNT 7.6 10^3/ul (4.8-10.8)
[2019-01-05 22:45] LABS: ALANINE AMINOTRANSFERASE 11 IU/L (13-69); ALBUMIN 4.2 g/dl (3.3-4.9); ALBUMIN/GLOBULIN RATIO 1.13; ALKALINE PHOSPHATASE 131 IU/L (42-121); ANION GAP 13 (5-13); ASPARTATE AMINO TRANSFERASE 22 IU/L (15-46); BILIRUBIN,INDIRECT 0.3 mg/dl (0-1.1); BILIRUBIN,TOTAL 0.3 mg/dl (0.2-1.3); BLOOD UREA NITROGEN 15 mg/dl (7-20); CALCIUM 9.2 mg/dl (8.4-10.2); CARBON DIOXIDE 27 mmol/L (21-31); CHLORIDE 104 mmol/L (97-110); CREATININE 0.94 mg/dl (0.44-1.00); Estimated GFR > 60 mL/min (>60); GLUCOSE 97 mg/dl (70-220); LIPASE 177 U/L (23-300); POTASSIUM 3.2 mmol/L (3.5-5.1); SODIUM 144 mmol/L (135-144); TOTAL PROTEIN 7.9 g/dl (6.1-8.1)
[2019-01-05 22:47] LABS: PROTIME 11.2 Sec (11.9-14.9); PT RATIO 0.9
[2019-01-05 22:48] LABS: PARTIAL THROMBOPLASTIN TIME 23.4 Sec (23.0-35.0)
[2019-01-06] MEDS: DEXTROSE 5%-0.45% NACL 1,000 ML IV ×2 (01:24→13:54)
[2019-01-06] MEDS: ONDANSETRON 4 MG INJ IV (03:01)
[2019-01-06] MEDS: morphine 2 MG INJ IV (03:02)
[2019-01-06] MEDS: IOHEXOL 300MG/ML 150 ML BTL (10:32)
== END 2019-01-06 17:40 | disposition home or self-care (01) | DRG 390 ==
LOC: E/R 19:49 → MS1 23:01
DX: K56.600 Partial intestinal obstruction, unspecified as to cause (principal); I10 Essential (primary) hypertension; E11.9 Type 2 diabetes mellitus without complications; Z85.42 Personal history of malignant neoplasm of other parts of uterus
CPT/HCPCS: 71045; 74176; 74240; 74250; 80053; 83690; 85025; 85610; 85730; 87081; 96374; 96375; 99285-25

== ENCOUNTER 2019-01-14 20:52 | Inpatient (IN) | payer OTHER ==
[2019-01-14] MEDS: ONDANSETRON 4 MG INJ IV (22:40)
[2019-01-14] MEDS: morphine 4 MG/ML VIAL IV (22:40)
[2019-01-14] MEDS: SOD CHLORIDE 0.9% 500 ML IV (22:40)
[2019-01-14 22:43] LABS: ADD MAN DIFF? NO
[2019-01-14 22:47] LABS: WHITE BLOOD COUNT 7.2 10^3/ul (4.8-10.8)
[2019-01-14 22:47] LABS: BASOPHIL # 0.1 10^3/ul (0.0-0.1); EOSINOPHILS # 0.2 10^3/ul (0.0-0.5); EOSINOPHILS % 2.8 % (0.0-7.0); HEMATOCRIT 38.6 % (37.0-47.0); LYMPHOCYTES # 1.4 10^3/ul (0.8-2.9); LYMPHOCYTES % 18.8 % (15.0-51.0); MEAN CORPUSCULAR HGB CONC 31.1 g/dl (32.0-37.0); MEAN CORPUSCULAR VOLUME 83.7 fl (82.0-101.0); MEAN PLATELET VOLUME 12.2 fl (7.4-10.4); MONOCYTE # 0.7 10^3/ul (0.3-0.9); NEUTROPHIL # 4.9 10^3/ul (1.6-7.5); PLATELET COUNT 278 10^3/UL (140-415); RED BLOOD COUNT 4.61 10^6/ul (4.20-5.40); RED CELL DISTRIBUTION WIDTH 16.1 % (11.5-14.5)
[2019-01-14 22:52] LABS: ADD UMIC YES; UR ASCORBIC ACID NEGATIVE (NEGATIVE); UR BACTERIA FEW /HPF (NONE SEEN); UR BILIRUBIN (Dip) NEGATIVE (NEGATIVE); UR BLOOD (Dip) 3+ mg/dL (NEGATIVE); UR CLARITY CLEAR (CLEAR); UR COLOR STRAW (YELLOW); UR GLUCOSE (Dip) 2+ mg/dL (NEGATIVE); UR KETONES (Dip) NEGATIVE (NEGATIVE); UR LEUKOCYTE ESTERASE (Dip) 2+ Leu/ul (NEGATIVE); UR NITRITE (Dip) NEGATIVE (NEGATIVE); UR RBC 81 /HPF (0-5); UR SPECIFIC GRAVITY (Dip) 1.006 (1.003-1.030); UR SQUAMOUS EPITHELIAL CELL FEW /HPF (FEW); UR TOTAL PROTEIN (Dip) NEGATIVE (NEGATIVE); UR UROBILINOGEN (Dip) NEGATIVE (NEGATIVE); UR WBC 24 /HPF (0-5)
[2019-01-14 22:59] LABS: ALANINE AMINOTRANSFERASE 23 IU/L (13-69); ALBUMIN 3.9 g/dl (3.3-4.9); ALBUMIN/GLOBULIN RATIO 1.08; ALKALINE PHOSPHATASE 121 IU/L (42-121); ANION GAP 12 (5-13); ASPARTATE AMINO TRANSFERASE 23 IU/L (15-46); BILIRUBIN,INDIRECT 0.2 mg/dl (0-1.1); BILIRUBIN,TOTAL 0.2 mg/dl (0.2-1.3); BLOOD UREA NITROGEN 12 mg/dl (7-20); CALCIUM 8.8 mg/dl (8.4-10.2); CARBON DIOXIDE 25 mmol/L (21-31); CHLORIDE 106 mmol/L (97-110); CREATININE 0.74 mg/dl (0.44-1.00); Estimated GFR > 60 mL/min (>60); GLUCOSE 100 mg/dl (70-220); LIPASE 184 U/L (23-300); POTASSIUM 3.3 mmol/L (3.5-5.1); SODIUM 143 mmol/L (135-144); TOTAL PROTEIN 7.5 g/dl (6.1-8.1)
[2019-01-15] MEDS: HYDROmorphONE 0.5 MG/0.5 ML SYG IV (00:39)
[2019-01-15] MEDS: ONDANSETRON 4 MG INJ IV ×3 (01:27→17:17)
[2019-01-15] MEDS ORDERED: NACL 0.9% 3 ML SYG IV (01:30)
[2019-01-15] MEDS: morphine 2 MG INJ IV ×5 (03:34→23:23)
[2019-01-15] MEDS: D5W-0.45 NACL + KCL 20 MEQ 1,000 ML IV ×3 (03:34→23:27)
[2019-01-15] MEDS: FAMOTIDINE 20 MG INJ IV ×2 (08:06→23:44)
[2019-01-15] MEDS: POTASSIUM CHLORIDE 100 ML IVPB ×2 (14:40→23:27)
[2019-01-15] MEDS: IOHEXOL 14.3 MG(I)/ML (ADULT) BTL PO (17:17)
[2019-01-15] MEDS: IOHEXOL 300MG/ML 150 ML BTL (18:03)
[2019-01-15] MEDS: SOD CHLORIDE 0.9% 100 ML (18:03)
[2019-01-16] MEDS: ACCU-CHEK XX ×2 (00:10→06:27)
[2019-01-16 06:29] LABS: ADD MAN DIFF? NO
[2019-01-16 06:31] LABS: WHITE BLOOD COUNT 4.1 10^3/ul (4.8-10.8)
[2019-01-16 06:31] LABS: ABNORMAL IP MESSAGE 1; EOSINOPHILS # 0.1 10^3/ul (0.0-0.5); HEMATOCRIT 36.7 % (37.0-47.0); HEMOGLOBIN 11.3 g/dl (12.0-16.0); LYMPHOCYTES # 0.6 10^3/ul (0.8-2.9); LYMPHOCYTES % 14.3 % (15.0-51.0); MEAN CORPUSCULAR HGB CONC 30.8 g/dl (32.0-37.0); MEAN CORPUSCULAR VOLUME 84.6 fl (82.0-101.0); MEAN PLATELET VOLUME 11.8 fl (7.4-10.4); MONOCYTE # 0.5 10^3/ul (0.3-0.9); MONOCYTES % 12.1 % (0.0-11.0); NEUTROPHIL # 2.9 10^3/ul (1.6-7.5); NEUTROPHILS % 70.1 % (39.0-77.0); PLATELET COUNT 219 10^3/UL (140-415); RED BLOOD COUNT 4.34 10^6/ul (4.20-5.40); RED CELL DISTRIBUTION WIDTH 16.4 % (11.5-14.5)
[2019-01-16 06:33] LABS: POSITIVE DIFF @See below
[2019-01-16 06:57] LABS: ANION GAP 8 (5-13); BLOOD UREA NITROGEN 6 mg/dl (7-20); CALCIUM 8.4 mg/dl (8.4-10.2); CARBON DIOXIDE 29 mmol/L (21-31); CHLORIDE 102 mmol/L (97-110); Estimated GFR > 60 mL/min (>60); GLUCOSE 120 mg/dl (70-220); POTASSIUM 4.1 mmol/L (3.5-5.1); SODIUM 139 mmol/L (135-144)
[2019-01-16 07:05] LABS: FREE THYROXINE INDEX (Calc) 3.81 ug/ml (0.65-3.89); T4 (THYROXINE) 11.2 ug/dl (5.5-11.0)
[2019-01-16] MEDS: D5W-0.45 NACL + KCL 20 MEQ 1,000 ML IV (07:11)
[2019-01-16 07:12] LABS: HEMOGLOBIN A1C 5.3 % (0-5.9)
[2019-01-16 08:13] LABS: THYROID STIMULATING HORMONE 0.495 MIU/L (0.465-4.680)
[2019-01-16] MEDS: FAMOTIDINE 20 MG INJ IV (09:16)
== END 2019-01-16 15:50 | disposition home or self-care (01) | DRG 392 ==
LOC: E/R 20:52 → PP2 01-15 01:05
DX: R10.9 Unspecified abdominal pain (principal); C56.9 Malignant neoplasm of unspecified ovary; I10 Essential (primary) hypertension; E11.9 Type 2 diabetes mellitus without complications; E87.5 Hyperkalemia; R11.2 Nausea with vomiting, unspecified
CPT/HCPCS: 36415; 71045; 74018; 74176; 74177; 80048; 80053; 81001; 82962; 83036; 83690; 84436; 84443; 84479; 85025; 87081; 96374; 96375; 99285-25

== ENCOUNTER 2019-03-27 00:40 | Inpatient (IN) | payer OTHER ==
[2019-03-27 01:54] LABS: WHITE BLOOD COUNT 0.9 10^3/ul (4.8-10.8)
[2019-03-27 01:54] LABS: ABNORMAL IP MESSAGE 1; HEMATOCRIT 29.7 % (37.0-47.0); HEMOGLOBIN 9.6 g/dl (12.0-16.0); MEAN CORPUSCULAR HEMOGLOBIN 26.9 pg (29.0-33.0); MEAN CORPUSCULAR HGB CONC 32.3 g/dl (32.0-37.0); MEAN CORPUSCULAR VOLUME 83.2 fl (82.0-101.0); MEAN PLATELET VOLUME 11.5 fl (7.4-10.4); PLATELET COUNT 170 10^3/UL (140-415); RED BLOOD COUNT 3.57 10^6/ul (4.20-5.40); RED CELL DISTRIBUTION WIDTH 17.1 % (11.5-14.5)
[2019-03-27 02:17] LABS: POSITIVE DIFF @See below
[2019-03-27 02:18] LABS: ADD MAN DIFF? YES
[2019-03-27 02:21] LABS: ALANINE AMINOTRANSFERASE 215 IU/L (13-69); ALBUMIN/GLOBULIN RATIO 1.17; ALKALINE PHOSPHATASE 169 IU/L (42-121); ANION GAP 14 (5-13); ASPARTATE AMINO TRANSFERASE 262 IU/L (15-46); BILIRUBIN,INDIRECT 0.6 mg/dl (0-1.1); BILIRUBIN,TOTAL 0.6 mg/dl (0.2-1.3); BLOOD UREA NITROGEN 15 mg/dl (7-20); CALCIUM 7.9 mg/dl (8.4-10.2); CARBON DIOXIDE 19 mmol/L (21-31); CHLORIDE 107 mmol/L (97-110); CREATININE 0.79 mg/dl (0.44-1.00); Estimated GFR > 60 mL/min (>60); GLUCOSE 137 mg/dl (70-220); LIPASE 124 U/L (23-300); POTASSIUM 3.1 mmol/L (3.5-5.1); SODIUM 140 mmol/L (135-144); TOTAL PROTEIN 7.4 g/dl (6.1-8.1)
[2019-03-27 03:27] LABS: ANISOCYTOSIS 1+ (0-0); BASOPHILS % (M) 1 % (0-2); GIANT THROMBO% (M) 4 % (0-0); LYMPHOCYTES #M 0.7 10^3/ul (0.8-2.9); LYMPHOCYTES % (M) 81 % (15-51); MICROCYTOSIS 1+ (0-0); MONOCYTE #M 0.1 10^3/ul (0.3-0.9); MONOCYTES % (M) 12 % (0-11); PLASMAC%(M) 1 % (0); PLATELET ESTIMATE NORMAL; POLYCHROMASIA 1+ (0-0); SEGMENTED NEUTROPHILS (M) % 5 % (39-77); SMUDGE%M 6 % (0-0)
[2019-03-27 04:39] LABS: ADD UMIC YES; UR ASCORBIC ACID NEGATIVE (NEGATIVE); UR BILIRUBIN (Dip) NEGATIVE (NEGATIVE); UR BLOOD (Dip) NEGATIVE (NEGATIVE); UR CLARITY CLEAR (CLEAR); UR COLOR YELLOW (YELLOW); UR GLUCOSE (Dip) 3+ mg/dL (NEGATIVE); UR KETONES (Dip) NEGATIVE (NEGATIVE); UR LEUKOCYTE ESTERASE (Dip) NEGATIVE Leu/ul (NEGATIVE); UR MUCUS FEW /HPF (NONE SEEN); UR NITRITE (Dip) NEGATIVE (NEGATIVE); UR RBC 1 /HPF (0-5); UR SPECIFIC GRAVITY (Dip) 1.021 (1.003-1.030); UR SQUAMOUS EPITHELIAL CELL FEW /HPF (FEW); UR TOTAL PROTEIN (Dip) 1+ mg/dl (NEGATIVE); UR UROBILINOGEN (Dip) NEGATIVE (NEGATIVE); UR WBC 3 /HPF (0-5)
[2019-03-27] MEDS ORDERED: ONDANSETRON 4 MG INJ IV (05:00)
[2019-03-27] MEDS: morphine 4 MG/ML VIAL IV (05:23)
[2019-03-27] MEDS: ONDANSETRON 4 MG INJ IV (05:24)
[2019-03-27] MEDS ORDERED: DOCUSATE SODIUM 100 MG CAP PO (05:30)
[2019-03-27] MEDS ORDERED: NACL 0.9% 3 ML SYG IV (05:30)
[2019-03-27] MEDS: PIPER-TAZO 3.375 GM IV (PMX) 100 ML IVPB ×3 (06:49→21:40)
[2019-03-27] MEDS: ACCU-CHEK XX ×4 (07:30→20:39)
[2019-03-27] MEDS: NS + KCL 20 MEQ 1,000 ML IV ×2 (08:54→15:11)
[2019-03-27] MEDS: ENOXAPARIN 40 MG/0.4 ML SYG SC (08:59)
[2019-03-27] MEDS: ONDANSETRON 4 MG TAB PO (08:59)
[2019-03-27] MEDS: EMPAGLIFLOZIN 10 MG TABLET PO (09:00)
[2019-03-27] MEDS: FAMOTIDINE 20 MG TAB PO ×2 (09:00→20:35)
[2019-03-27 09:23] LABS: HAAIG REFLEX REFLEX FILED
[2019-03-27 09:55] LABS: D-DIMER 1041.54 ng/ml (<460)
[2019-03-27 10:01] LABS: TROPONIN-I < 0.012 ng/ml (0.000-0.120)
[2019-03-27 10:41] LABS: ERYTHROCYTE SEDIMENTATION RATE 60 mm/Hr (0-30)
[2019-03-27] MEDS ORDERED: SPECIAL NON-STANDARD MEDICATION SC (16:30)
[2019-03-27] MEDS: FILGRASTIM-AAFI 480 MCG/0.8 ML SYRINGE SC (18:28)
[2019-03-27] MEDS: morphine 2 MG INJ IV (22:46)
[2019-03-27 23:52] LABS: HEPATITIS B SURFACE ANTIGEN NEGATIVE (NEGATIVE)
[2019-03-28] MEDS: NS + KCL 20 MEQ 1,000 ML IV ×3 (00:04→20:46)
[2019-03-28 00:10] LABS: HEPATITIS B CORE ANTIBODY NEGATIVE (NEGATIVE); HEPATITIS C VIRAL ANTIBODY NEGATIVE (NEGATIVE)
[2019-03-28] MEDS: PIPER-TAZO 3.375 GM IV (PMX) 100 ML IVPB ×3 (05:49→20:46)
[2019-03-28 06:43] LABS: ALANINE AMINOTRANSFERASE 247 IU/L (13-69); ALBUMIN 3.2 g/dl (3.3-4.9); ALKALINE PHOSPHATASE 157 IU/L (42-121); ASPARTATE AMINO TRANSFERASE 127 IU/L (15-46); BILIRUBIN,INDIRECT 0.6 mg/dl (0-1.1); BILIRUBIN,TOTAL 0.6 mg/dl (0.2-1.3); TOTAL PROTEIN 6.4 g/dl (6.1-8.1)
[2019-03-28 06:49] LABS: ABNORMAL IP MESSAGE 1; HEMATOCRIT 26.7 % (37.0-47.0); HEMOGLOBIN 8.6 g/dl (12.0-16.0); MEAN CORPUSCULAR HEMOGLOBIN 27.2 pg (29.0-33.0); MEAN CORPUSCULAR HGB CONC 32.2 g/dl (32.0-37.0); MEAN CORPUSCULAR VOLUME 84.5 fl (82.0-101.0); MEAN PLATELET VOLUME 12.1 fl (7.4-10.4); PLATELET COUNT 111 10^3/UL (140-415); RED BLOOD COUNT 3.16 10^6/ul (4.20-5.40); RED CELL DISTRIBUTION WIDTH 17.7 % (11.5-14.5)
[2019-03-28 06:50] LABS: ANION GAP 9 (5-13); BLOOD UREA NITROGEN 9 mg/dl (7-20); CALCIUM 7.1 mg/dl (8.4-10.2); CARBON DIOXIDE 25 mmol/L (21-31); CHLORIDE 108 mmol/L (97-110); CREATININE 0.85 mg/dl (0.44-1.00); Estimated GFR > 60 mL/min (>60); GLUCOSE 80 mg/dl (70-220); POTASSIUM 4.1 mmol/L (3.5-5.1); SODIUM 142 mmol/L (135-144)
[2019-03-28 06:52] LABS: ADD MAN DIFF? YES; POSITIVE DIFF @See below
[2019-03-28 07:17] LABS: THYROID STIMULATING HORMONE 0.352 MIU/L (0.465-4.680)
[2019-03-28] MEDS: ACCU-CHEK XX ×4 (07:30→20:46)
[2019-03-28 07:33] LABS: HEMOGLOBIN A1C 5.5 % (0-5.9)
[2019-03-28] MEDS: FAMOTIDINE 20 MG TAB PO ×2 (08:05→20:46)
[2019-03-28] MEDS: EMPAGLIFLOZIN 10 MG TABLET PO (08:05)
[2019-03-28] MEDS: ONDANSETRON 4 MG TAB PO (08:05)
[2019-03-28] MEDS: ENOXAPARIN 40 MG/0.4 ML SYG SC (08:06)
[2019-03-28 09:13] LABS: ANISOCYTOSIS 1+ (0-0); BAND NEUTROPHILS % (M) 4 % (0-4); ERYTHROBLAST% (NRBC) (M) 1 % (0-0); GIANT THROMBO% (M) 12 % (0-0); LYMPHOCYTES #M 0.6 10^3/ul (0.8-2.9); LYMPHOCYTES % (M) 68 % (15-51); MICROCYTOSIS 1+ (0-0); MONOCYTE #M 0.2 10^3/ul (0.3-0.9); MONOCYTES % (M) 24 % (0-11); MYELOCYTES % (M) 1 % (0-0); OVALOCYTES 1+ (0-0); PLATELET ESTIMATE DECREASED; POLYCHROMASIA 1+ (0-0); SEGMENTED NEUTROPHILS (M) % 3 % (39-77); SMUDGE%M 5 % (0-0)
[2019-03-28] MEDS: FILGRASTIM-AAFI 480 MCG/0.8 ML SYRINGE SC (17:59)
[2019-03-29] MEDS: NS + KCL 20 MEQ 1,000 ML IV (05:26)
[2019-03-29] MEDS: PIPER-TAZO 3.375 GM IV (PMX) 100 ML IVPB (05:26)
[2019-03-29 06:36] LABS: WHITE BLOOD COUNT 2.3 10^3/ul (4.8-10.8)
[2019-03-29 06:36] LABS: ABNORMAL IP MESSAGE 1; HEMATOCRIT 27.3 % (37.0-47.0); HEMOGLOBIN 8.7 g/dl (12.0-16.0); MEAN CORPUSCULAR HGB CONC 31.9 g/dl (32.0-37.0); MEAN CORPUSCULAR VOLUME 84.8 fl (82.0-101.0); MEAN PLATELET VOLUME 11.9 fl (7.4-10.4); NUCLEATED RED BLOOD CELLS% 1.7 /100WBC (0.0-0.0); PLATELET COUNT 75 10^3/UL (140-415); RED BLOOD COUNT 3.22 10^6/ul (4.20-5.40); RED CELL DISTRIBUTION WIDTH 17.6 % (11.5-14.5)
[2019-03-29 06:41] LABS: POSITIVE DIFF @See below
[2019-03-29 06:42] LABS: ADD MAN DIFF? YES
[2019-03-29] MEDS: ACCU-CHEK XX (07:30)
[2019-03-29] MEDS: morphine 2 MG INJ IV (07:32)
[2019-03-29] MEDS: ONDANSETRON 4 MG TAB PO (08:41)
[2019-03-29] MEDS: FAMOTIDINE 20 MG TAB PO (08:41)
[2019-03-29] MEDS: EMPAGLIFLOZIN 10 MG TABLET PO (08:41)
[2019-03-29] MEDS: ENOXAPARIN 40 MG/0.4 ML SYG SC (08:52)
[2019-03-29 09:07] LABS: ANISOCYTOSIS 2+ (0-0); BAND NEUTROPHILS #M 0.7 10^3/ul (0.0-0.6); BAND NEUTROPHILS % (M) 31 % (0-4); BASOPHILS % (M) 1 % (0-2); ERYTHROBLAST% (NRBC) (M) 5 % (0-0); GIANT THROMBO% (M) 1 % (0-0); LYMPHOCYTES #M 0.8 10^3/ul (0.8-2.9); LYMPHOCYTES % (M) 37 % (15-51); MICROCYTOSIS 1+ (0-0); MONOCYTE #M 0.3 10^3/ul (0.3-0.9); MONOCYTES % (M) 15 % (0-11); MYELOCYTES % (M) 1 % (0-0); PLATELET ESTIMATE DECREASED; POLYCHROMASIA 1+ (0-0); SEG NEUT #M 0.4 10^3/ul (1.6-7.5); SEGMENTED NEUTROPHILS (M) % 15 % (39-77); SMUDGE%M 2 % (0-0); TOXIC GRANULATION 1+ (0-0)
== END 2019-03-29 11:30 | disposition home health service (06) | DRG 445 ==
LOC: E/R 00:40 → PP2 05:00
DX: K80.00 Calculus of gallbladder with acute cholecystitis without obstruction (principal); C56.1 Malignant neoplasm of right ovary; I10 Essential (primary) hypertension; E11.9 Type 2 diabetes mellitus without complications; D70.9 Neutropenia, unspecified; E87.6 Hypokalemia; D63.8 Anemia in other chronic diseases classified elsewhere; Z90.710 Acquired absence of both cervix and uterus; Z79.84 Long term (current) use of oral hypoglycemic drugs
CPT/HCPCS: 36415; 71045; 76705; 78226; 80048; 80053; 80076; 81001; 82962; 83036; 83690; 84443; 84484; 85025; 85378; 85651; 86704; 86709; 86803; 87340; 93005; 99285-25; G0378

== ENCOUNTER 2019-04-08 17:26 | Observation (INO) | payer OTHER ==
[2019-04-08 19:26] LABS: ABNORMAL IP MESSAGE 1; HEMATOCRIT 34.2 % (37.0-47.0); HEMOGLOBIN 10.8 g/dl (12.0-16.0); MEAN CORPUSCULAR HEMOGLOBIN 27.1 pg (29.0-33.0); MEAN CORPUSCULAR HGB CONC 31.6 g/dl (32.0-37.0); MEAN CORPUSCULAR VOLUME 85.7 fl (82.0-101.0); MEAN PLATELET VOLUME 11.3 fl (7.4-10.4); PLATELET COUNT 161 10^3/UL (140-415); RED BLOOD COUNT 3.99 10^6/ul (4.20-5.40); RED CELL DISTRIBUTION WIDTH 19.3 % (11.5-14.5)
[2019-04-08 19:26] LABS: WHITE BLOOD COUNT 4.1 10^3/ul (4.8-10.8)
[2019-04-08 19:29] LABS: POSITIVE DIFF @See below
[2019-04-08 19:30] LABS: ADD MAN DIFF? YES
[2019-04-08 19:43] LABS: ALANINE AMINOTRANSFERASE 92 IU/L (13-69); ALBUMIN 4.1 g/dl (3.3-4.9); ALKALINE PHOSPHATASE 135 IU/L (42-121); ANION GAP 13 (5-13); ASPARTATE AMINO TRANSFERASE 62 IU/L (15-46); BILIRUBIN,INDIRECT 0.4 mg/dl (0-1.1); BILIRUBIN,TOTAL 0.4 mg/dl (0.2-1.3); BLOOD UREA NITROGEN 14 mg/dl (7-20); CALCIUM 7.8 mg/dl (8.4-10.2); CARBON DIOXIDE 20 mmol/L (21-31); CHLORIDE 111 mmol/L (97-110); CREATININE 0.76 mg/dl (0.44-1.00); Estimated GFR > 60 mL/min (>60); GLUCOSE 111 mg/dl (70-220); LIPASE 45 U/L (23-300); POTASSIUM 4.1 mmol/L (3.5-5.1); SODIUM 144 mmol/L (135-144); TOTAL PROTEIN 7.8 g/dl (6.1-8.1)
[2019-04-08 21:07] LABS: ANISOCYTOSIS 1+ (0-0); BAND NEUTROPHILS % (M) 2 % (0-4); BASOPHILS % (M) 2 % (0-2); GIANT THROMBO% (M) 1 % (0-0); LYMPHOCYTES #M 0.1 10^3/ul (0.8-2.9); LYMPHOCYTES % (M) 3 % (15-51); MICROCYTOSIS 1+ (0-0); MONOCYTE #M 0.1 10^3/ul (0.3-0.9); MONOCYTES % (M) 3 % (0-11); POIKILOCYTOSIS 1+ (0-0); SEG NEUT #M 3.7 10^3/ul (1.6-7.5); SEGMENTED NEUTROPHILS (M) % 90 % (39-77); SMUDGE%M 8 % (0-0)
[2019-04-08 21:16] LABS: ADD UMIC NO; UR ASCORBIC ACID NEGATIVE (NEGATIVE); UR BILIRUBIN (Dip) NEGATIVE (NEGATIVE); UR BLOOD (Dip) NEGATIVE (NEGATIVE); UR CLARITY SLIGHTLY CLOUDY (CLEAR); UR COLOR YELLOW (YELLOW); UR GLUCOSE (Dip) 3+ mg/dL (NEGATIVE); UR KETONES (Dip) NEGATIVE (NEGATIVE); UR LEUKOCYTE ESTERASE (Dip) NEGATIVE Leu/ul (NEGATIVE); UR MUCUS FEW /HPF (NONE SEEN); UR NITRITE (Dip) NEGATIVE (NEGATIVE); UR RBC 1 /HPF (0-5); UR SPECIFIC GRAVITY (Dip) 1.015 (1.003-1.030); UR SQUAMOUS EPITHELIAL CELL FEW /HPF (FEW); UR TOTAL PROTEIN (Dip) NEGATIVE (NEGATIVE); UR UROBILINOGEN (Dip) NEGATIVE (NEGATIVE); UR WBC 4 /HPF (0-5)
[2019-04-08] MEDS: ONDANSETRON 4 MG INJ IV ×2 (22:06→23:46)
[2019-04-08] MEDS: SOD CHLORIDE 0.9% 1,000 ML IV (22:06)
[2019-04-08] MEDS: morphine 4 MG/ML VIAL IV (22:06)
[2019-04-08] MEDS: HYDROmorphONE 0.5 MG/0.5 ML SYG IV (23:46)
[2019-04-09] MEDS ORDERED: NACL 0.9% 3 ML SYG IV (01:00)
[2019-04-09] MEDS ORDERED: DOCUSATE SODIUM 100 MG CAP PO (01:00)
[2019-04-09] MEDS ORDERED: HYDROCODONE/APAP (5/325) TAB PO (01:00)
[2019-04-09] MEDS: FAMOTIDINE 20 MG INJ IV ×2 (01:45→09:33)
[2019-04-09] MEDS: SOD CHLORIDE 0.9% 1,000 ML IV ×2 (01:52→14:33)
[2019-04-09] MEDS: traMADol 50 MG TAB PO (01:53)
[2019-04-09] MEDS: HEPARIN 5,000 UNIT/1 ML VIAL SC ×3 (01:54→15:32)
[2019-04-09] MEDS: ONDANSETRON 4 MG INJ IV ×2 (03:52→12:24)
[2019-04-09] MEDS: HYDROmorphONE 0.5 MG/0.5 ML SYG IV ×3 (03:53→15:30)
[2019-04-09 05:09] LABS: ADD MAN DIFF? NO
[2019-04-09 05:11] LABS: WHITE BLOOD COUNT 4.2 10^3/ul (4.8-10.8)
[2019-04-09 05:11] LABS: ABNORMAL IP MESSAGE 1; BASOPHILS % 0.5 % (0.0-2.0); HEMOGLOBIN 8.8 g/dl (12.0-16.0); LYMPHOCYTES # 0.4 10^3/ul (0.8-2.9); LYMPHOCYTES % 9.7 % (15.0-51.0); MEAN CORPUSCULAR HEMOGLOBIN 27.7 pg (29.0-33.0); MEAN CORPUSCULAR HGB CONC 32.6 g/dl (32.0-37.0); MEAN CORPUSCULAR VOLUME 84.9 fl (82.0-101.0); MEAN PLATELET VOLUME 11.3 fl (7.4-10.4); MONOCYTE # 0.3 10^3/ul (0.3-0.9); MONOCYTES % 5.9 % (0.0-11.0); NEUTROPHIL # 3.5 10^3/ul (1.6-7.5); NEUTROPHILS % 83.2 % (39.0-77.0); PLATELET COUNT 160 10^3/UL (140-415); RED BLOOD COUNT 3.18 10^6/ul (4.20-5.40)
[2019-04-09 05:12] LABS: POSITIVE DIFF @See below
[2019-04-09 05:27] LABS: ANION GAP 10 (5-13); BLOOD UREA NITROGEN 14 mg/dl (7-20); CALCIUM 6.9 mg/dl (8.4-10.2); CARBON DIOXIDE 21 mmol/L (21-31); CHLORIDE 112 mmol/L (97-110); CREATININE 0.64 mg/dl (0.44-1.00); Estimated GFR > 60 mL/min (>60); GLUCOSE 92 mg/dl (70-220); POTASSIUM 3.9 mmol/L (3.5-5.1); SODIUM 143 mmol/L (135-144)
[2019-04-09 05:31] LABS: INR 1.01; PARTIAL THROMBOPLASTIN TIME 25.5 Sec (23.0-35.0); PROTIME 13.4 Sec (11.9-14.9)
[2019-04-09 05:45] LABS: HEMOGLOBIN A1C 5.5 % (0-5.9); TROPONIN-I < 0.012 ng/ml (0.000-0.120)
[2019-04-09] MEDS ORDERED: SINCALIDE 5 MCG INJ IV (08:00)
[2019-04-09] MEDS: ONDANSETRON 4 MG TAB PO (09:33)
[2019-04-09] MEDS: ACCU-CHEK XX (12:17)
[2019-04-09] MEDS ORDERED: FAMOTIDINE 20 MG TAB PO (21:00)
== END 2019-04-09 17:00 | disposition home or self-care (01) ==
LOC: MS1 23:43 → E/R 17:26
DX: R10.13 Epigastric pain (principal); R11.2 Nausea with vomiting, unspecified; C56.9 Malignant neoplasm of unspecified ovary; I10 Essential (primary) hypertension; K21.9 Gastro-esophageal reflux disease without esophagitis; E11.9 Type 2 diabetes mellitus without complications
CPT/HCPCS: 36415; 76705; 78227; 80048; 80053; 81001; 81003; 82962; 83036; 83690; 84484; 85025; 85610; 85730; 96374; 96375; 99285-25

== ENCOUNTER 2019-04-15 18:04 | Inpatient (IN) | payer OTHER ==
[2019-04-15] MEDS: HYDROmorphONE 1 MG/ML SYG IV (21:31)
[2019-04-15] MEDS: ONDANSETRON 4 MG INJ IV (21:31)
[2019-04-15] MEDS: LACTATED RINGER'S 1,000 ML IV (21:31)
[2019-04-15 21:32] LABS: WHITE BLOOD COUNT 0.5 10^3/ul (4.8-10.8)
[2019-04-15 21:32] LABS: ABNORMAL IP MESSAGE 1; HEMOGLOBIN 10.1 g/dl (12.0-16.0); MEAN CORPUSCULAR HEMOGLOBIN 27.6 pg (29.0-33.0); MEAN CORPUSCULAR HGB CONC 32.6 g/dl (32.0-37.0); MEAN CORPUSCULAR VOLUME 84.7 fl (82.0-101.0); MEAN PLATELET VOLUME 11.3 fl (7.4-10.4); PLATELET COUNT 196 10^3/UL (140-415); RED BLOOD COUNT 3.66 10^6/ul (4.20-5.40); RED CELL DISTRIBUTION WIDTH 18.2 % (11.5-14.5)
[2019-04-15 21:38] LABS: ALANINE AMINOTRANSFERASE 154 IU/L (13-69); ALBUMIN 4.6 g/dl (3.3-4.9); ALBUMIN/GLOBULIN RATIO 1.09; ALKALINE PHOSPHATASE 133 IU/L (42-121); ANION GAP 16 (5-13); ASPARTATE AMINO TRANSFERASE 81 IU/L (15-46); BILIRUBIN,INDIRECT 1.1 mg/dl (0-1.1); BILIRUBIN,TOTAL 1.1 mg/dl (0.2-1.3); BLOOD UREA NITROGEN 19 mg/dl (7-20); CALCIUM 8.4 mg/dl (8.4-10.2); CARBON DIOXIDE 23 mmol/L (21-31); CHLORIDE 99 mmol/L (97-110); CREATININE 1.18 mg/dl (0.44-1.00); Estimated GFR 47 mL/min (>60); GLUCOSE 122 mg/dl (70-220); LIPASE 121 U/L (23-300); SODIUM 138 mmol/L (135-144); TOTAL PROTEIN 8.8 g/dl (6.1-8.1)
[2019-04-15 21:41] LABS: ADD MAN DIFF? YES; POSITIVE DIFF @See below; POTASSIUM 2.4 mmol/L (3.5-5.1)
[2019-04-15] MEDS: POTASSIUM CHLORIDE 100 ML IVPB (23:23)
[2019-04-15] MEDS: POTASSIUM CHLORIDE (SR) 20 MEQ TAB PO (23:23)
[2019-04-15] MEDS ORDERED: HYDROCODONE/APAP (5/325) TAB PO (23:30)
[2019-04-15] MEDS ORDERED: NACL 0.9% 3 ML SYG IV (23:30)
[2019-04-15] MEDS ORDERED: DOCUSATE SODIUM 100 MG CAP PO (23:30)
[2019-04-15] MEDS: MAGNESIUM SULFATE 1 GM/D5W 100 ML IVPB (23:49)
[2019-04-16] MEDS: FAMOTIDINE 20 MG TAB PO ×3 (01:54→21:34)
[2019-04-16] MEDS: POTASSIUM CHLORIDE 100 ML IVPB (01:55)
[2019-04-16] MEDS: HYDROmorphONE 0.5 MG/0.5 ML SYG IV ×5 (02:26→21:32)
[2019-04-16 05:57] LABS: WHITE BLOOD COUNT 0.6 10^3/ul (4.8-10.8)
[2019-04-16 05:57] LABS: ABNORMAL IP MESSAGE 1; HEMATOCRIT 26.9 % (37.0-47.0); HEMOGLOBIN 8.5 g/dl (12.0-16.0); MEAN CORPUSCULAR HEMOGLOBIN 27.2 pg (29.0-33.0); MEAN CORPUSCULAR HGB CONC 31.6 g/dl (32.0-37.0); MEAN CORPUSCULAR VOLUME 86.2 fl (82.0-101.0); MEAN PLATELET VOLUME 11.3 fl (7.4-10.4); PLATELET COUNT 143 10^3/UL (140-415); RED BLOOD COUNT 3.12 10^6/ul (4.20-5.40); RED CELL DISTRIBUTION WIDTH 18.6 % (11.5-14.5)
[2019-04-16 06:02] LABS: ADD MAN DIFF? YES; POSITIVE DIFF @See below
[2019-04-16] MEDS: NS + KCL 20 MEQ 1,000 ML IV ×2 (06:17→10:04)
[2019-04-16 06:22] LABS: ANION GAP 8 (5-13); BLOOD UREA NITROGEN 18 mg/dl (7-20); CALCIUM 7.6 mg/dl (8.4-10.2); CARBON DIOXIDE 27 mmol/L (21-31); CHLORIDE 104 mmol/L (97-110); CREATININE 0.82 mg/dl (0.44-1.00); Estimated GFR > 60 mL/min (>60); GLUCOSE 119 mg/dl (70-220); POTASSIUM 5.8 mmol/L (3.5-5.1); SODIUM 139 mmol/L (135-144)
[2019-04-16 06:38] LABS: LYMPHOCYTES # 0.4 10^3/ul (0.8-2.9); MONOCYTE # 0.1 10^3/ul (0.3-0.9); NEUTROPHILS % 5.8 % (39.0-77.0)
[2019-04-16 06:45] LABS: LYMPHOCYTES % 67.3 % (15.0-51.0)
[2019-04-16 06:49] LABS: MONOCYTES % 26.9 % (0.0-11.0)
[2019-04-16 06:51] LABS: HEMOGLOBIN A1C 5.8 % (0-5.9)
[2019-04-16 07:13] LABS: ANISOCYTOSIS 1+ (0-0); BAND NEUTROPHILS % (M) 1 % (0-4); BASOPHILS % (M) 1 % (0-2); ERYTHROBLAST% (NRBC) (M) 1 % (0-0); GIANT THROMBO% (M) 16 % (0-0); LYMPHOCYTES #M 0.4 10^3/ul (0.8-2.9); LYMPHOCYTES % (M) 84 % (15-51); MICROCYTOSIS 1+ (0-0); MONOCYTES % (M) 9 % (0-11); PLATELET ESTIMATE NORMAL; SEGMENTED NEUTROPHILS (M) % 5 % (39-77); SMUDGE%M 4 % (0-0)
[2019-04-16] MEDS: ACCU-CHEK XX ×4 (07:25→21:37)
[2019-04-16 09:57] LABS: ANISOCYTOSIS 1+ (0-0); BAND NEUTROPHILS % (M) 2 % (0-4); GIANT THROMBO% (M) 31 % (0-0); LYMPHOCYTES #M 0.4 10^3/ul (0.8-2.9); LYMPHOCYTES % (M) 80 % (15-51); MICROCYTOSIS 1+ (0-0); MONOCYTES % (M) 9 % (0-11); PLATELET ESTIMATE NORMAL; POIKILOCYTOSIS 1+ (0-0); POLYCHROMASIA 1+ (0-0); RBC MORPHOLOGY COMMENT @See below; REACTIVE LYMPHOCYTES% (M) 9 % (0-0); SEGMENTED NEUTROPHILS (M) % 1 % (39-77); SMUDGE%M 8 % (0-0); WBC MORPHOLOGY COMMENT @See below
[2019-04-16] MEDS: ONDANSETRON 4 MG TAB PO (10:04)
[2019-04-16] MEDS: EMPAGLIFLOZIN 10 MG TABLET PO (10:04)
[2019-04-16] MEDS: ENOXAPARIN 40 MG/0.4 ML SYG SC (10:26)
[2019-04-16 11:02] LABS: POTASSIUM 4.9 mmol/L (3.5-5.1)
[2019-04-16] MEDS: FILGRASTIM-AAFI 480 MCG/0.8 ML SYRINGE SC (17:31)
[2019-04-16] MEDS: METOCLOPRAMIDE 10 MG INJ IV (22:57)
[2019-04-17] MEDS: HYDROmorphONE 0.5 MG/0.5 ML SYG IV ×4 (04:06→23:03)
[2019-04-17 05:54] LABS: WHITE BLOOD COUNT 0.5 10^3/ul (4.8-10.8)
[2019-04-17 05:54] LABS: ABNORMAL IP MESSAGE 1; HEMATOCRIT 24.2 % (37.0-47.0); HEMOGLOBIN 7.6 g/dl (12.0-16.0); MEAN CORPUSCULAR HEMOGLOBIN 27.8 pg (29.0-33.0); MEAN CORPUSCULAR HGB CONC 31.4 g/dl (32.0-37.0); MEAN CORPUSCULAR VOLUME 88.6 fl (82.0-101.0); MEAN PLATELET VOLUME 11.4 fl (7.4-10.4); PLATELET COUNT 106 10^3/UL (140-415); RED BLOOD COUNT 2.73 10^6/ul (4.20-5.40); RED CELL DISTRIBUTION WIDTH 18.6 % (11.5-14.5)
[2019-04-17 05:55] LABS: ADD MAN DIFF? YES; POSITIVE DIFF @See below
[2019-04-17 06:36] LABS: ANION GAP 9 (5-13); BLOOD UREA NITROGEN 14 mg/dl (7-20); CALCIUM 7.8 mg/dl (8.4-10.2); CARBON DIOXIDE 25 mmol/L (21-31); CHLORIDE 103 mmol/L (97-110); CREATININE 0.79 mg/dl (0.44-1.00); Estimated GFR > 60 mL/min (>60); GLUCOSE 87 mg/dl (70-220); POTASSIUM 4.3 mmol/L (3.5-5.1); SODIUM 137 mmol/L (135-144)
[2019-04-17] MEDS: ACCU-CHEK XX ×4 (07:25→20:48)
[2019-04-17 07:45] LABS: ANISOCYTOSIS 1+ (0-0); BASOPHILS % (M) 3 % (0-2); ERYTHROBLAST% (NRBC) (M) 1 % (0-0); GIANT THROMBO% (M) 50 % (0-0); LYMPHOCYTES #M 0.4 10^3/ul (0.8-2.9); LYMPHOCYTES % (M) 87 % (15-51); MICROCYTOSIS 1+ (0-0); MONOCYTES % (M) 6 % (0-11); PLATELET ESTIMATE DECREASED; PROMYELOCYTES % (M) 1 % (0-0); SEGMENTED NEUTROPHILS (M) % 3 % (39-77); SMUDGE%M 15 % (0-0)
[2019-04-17] MEDS: ONDANSETRON 4 MG TAB PO (08:27)
[2019-04-17] MEDS: EMPAGLIFLOZIN 10 MG TABLET PO (08:27)
[2019-04-17] MEDS: FAMOTIDINE 20 MG TAB PO ×2 (08:27→20:48)
[2019-04-17] MEDS: ENOXAPARIN 40 MG/0.4 ML SYG SC (08:32)
[2019-04-17] MEDS: METOCLOPRAMIDE 10 MG INJ IV ×2 (14:49→20:54)
[2019-04-17] MEDS: FILGRASTIM-AAFI 480 MCG/0.8 ML SYRINGE SC (17:48)
[2019-04-18 06:31] LABS: WHITE BLOOD COUNT 0.9 10^3/ul (4.8-10.8)
[2019-04-18 06:31] LABS: ABNORMAL IP MESSAGE 1; HEMOGLOBIN 7.7 g/dl (12.0-16.0); MEAN CORPUSCULAR HEMOGLOBIN 28.2 pg (29.0-33.0); MEAN CORPUSCULAR HGB CONC 32.1 g/dl (32.0-37.0); MEAN CORPUSCULAR VOLUME 87.9 fl (82.0-101.0); MEAN PLATELET VOLUME 11.3 fl (7.4-10.4); PLATELET COUNT 85 10^3/UL (140-415); RED BLOOD COUNT 2.73 10^6/ul (4.20-5.40); RED CELL DISTRIBUTION WIDTH 18.2 % (11.5-14.5)
[2019-04-18 06:45] LABS: ADD MAN DIFF? YES; POSITIVE DIFF @See below
[2019-04-18] MEDS: ACCU-CHEK XX (07:57)
[2019-04-18] MEDS: FAMOTIDINE 20 MG TAB PO ×2 (08:56→21:00)
[2019-04-18] MEDS: ONDANSETRON 4 MG TAB PO (08:56)
[2019-04-18] MEDS: EMPAGLIFLOZIN 10 MG TABLET PO (08:56)
[2019-04-18] MEDS: ENOXAPARIN 40 MG/0.4 ML SYG SC (09:43)
[2019-04-18 11:38] LABS: ANISOCYTOSIS 1+ (0-0); BAND NEUTROPHILS % (M) 6 % (0-4); BASOPHILS % (M) 1 % (0-2); GIANT THROMBO% (M) 46 % (0-0); LYMPHOCYTES #M 0.6 10^3/ul (0.8-2.9); LYMPHOCYTES % (M) 70 % (15-51); MONOCYTE #M 0.2 10^3/ul (0.3-0.9); MONOCYTES % (M) 23 % (0-11); PLATELET ESTIMATE DECREASED; POIKILOCYTOSIS 2+ (0-0); POLYCHROMASIA 1+ (0-0); SMUDGE%M 15 % (0-0)
[2019-04-18] MEDS: FILGRASTIM-AAFI 480 MCG/0.8 ML SYRINGE SC (18:09)
[2019-04-18] MEDS: DOCUSATE SODIUM 100 MG CAP PO (22:51)
[2019-04-19 06:11] LABS: ABNORMAL IP MESSAGE 1; HEMATOCRIT 23.9 % (37.0-47.0); HEMOGLOBIN 7.8 g/dl (12.0-16.0); MEAN CORPUSCULAR HEMOGLOBIN 28.3 pg (29.0-33.0); MEAN CORPUSCULAR HGB CONC 32.6 g/dl (32.0-37.0); MEAN CORPUSCULAR VOLUME 86.6 fl (82.0-101.0); MEAN PLATELET VOLUME 12.5 fl (7.4-10.4); PLATELET COUNT 66 10^3/UL (140-415); RED BLOOD COUNT 2.76 10^6/ul (4.20-5.40)
[2019-04-19 06:11] LABS: WHITE BLOOD COUNT 2.4 10^3/ul (4.8-10.8)
[2019-04-19 07:09] LABS: ADD MAN DIFF? YES; POSITIVE DIFF @See below
[2019-04-19] MEDS: EMPAGLIFLOZIN 10 MG TABLET PO (08:09)
[2019-04-19] MEDS: HYDROmorphONE 0.5 MG/0.5 ML SYG IV (08:09)
[2019-04-19] MEDS: ONDANSETRON 4 MG TAB PO (08:09)
[2019-04-19] MEDS: FAMOTIDINE 20 MG TAB PO (08:09)
[2019-04-19] MEDS: ENOXAPARIN 40 MG/0.4 ML SYG SC (09:46)
[2019-04-19 10:02] LABS: ANISOCYTOSIS 2+ (0-0); BAND NEUTROPHILS #M 0.5 10^3/ul (0.0-0.6); BAND NEUTROPHILS % (M) 24 % (0-4); GIANT THROMBO% (M) 4 % (0-0); LYMPHOCYTES #M 0.9 10^3/ul (0.8-2.9); LYMPHOCYTES % (M) 38 % (15-51); MICROCYTOSIS 1+ (0-0); MONOCYTE #M 0.3 10^3/ul (0.3-0.9); MONOCYTES % (M) 14 % (0-11); PLATELET ESTIMATE SIG DECREASED; POLYCHROMASIA 3+ (0-0); REACTIVE LYMPHOCYTES% (M) 2 % (0-0); SEG NEUT #M 0.5 10^3/ul (1.6-7.5); SEGMENTED NEUTROPHILS (M) % 22 % (39-77); SMUDGE%M 2 % (0-0); TOXIC GRANULATION 1+ (0-0)
[2019-04-19] MEDS: DOCUSATE SODIUM 100 MG CAP PO (11:30)
== END 2019-04-19 18:50 | disposition home or self-care (01) | DRG 445 ==
LOC: TEL 23:17 → E/R 18:04
PROVIDERS: Internal Medicine
DX: K80.50 Calculus of bile duct without cholangitis or cholecystitis without obstruction (principal); C56.2 Malignant neoplasm of left ovary; D70.9 Neutropenia, unspecified; E11.8 Type 2 diabetes mellitus with unspecified complications; K21.9 Gastro-esophageal reflux disease without esophagitis; I10 Essential (primary) hypertension; E87.6 Hypokalemia; R11.2 Nausea with vomiting, unspecified; E86.0 Dehydration; D72.810 Lymphocytopenia; D70.1 Agranulocytosis secondary to cancer chemotherapy; D64.81 Anemia due to antineoplastic chemotherapy
CPT/HCPCS: 36415; 76705; 80048; 80053; 82962; 83036; 83690; 84132; 85025; 93005; 96374; 96375; 99285-25

== ENCOUNTER 2019-04-25 02:26 | Observation (INO) | payer OTHER ==
[2019-04-25] MEDS: ONDANSETRON 4 MG INJ IV ×3 (05:18→20:39)
[2019-04-25 05:22] LABS: ADD MAN DIFF? NO
[2019-04-25] MEDS: HYDROmorphONE 0.5 MG/0.5 ML SYG IV ×5 (05:22→20:39)
[2019-04-25 05:26] LABS: WHITE BLOOD COUNT 3.6 10^3/ul (4.8-10.8)
[2019-04-25 05:26] LABS: ABNORMAL IP MESSAGE 1; BASOPHILS % 0.3 % (0.0-2.0); HEMATOCRIT 26.3 % (37.0-47.0); HEMOGLOBIN 8.5 g/dl (12.0-16.0); LYMPHOCYTES # 1.1 10^3/ul (0.8-2.9); LYMPHOCYTES % 29.3 % (15.0-51.0); MEAN CORPUSCULAR HEMOGLOBIN 27.9 pg (29.0-33.0); MEAN CORPUSCULAR HGB CONC 32.3 g/dl (32.0-37.0); MEAN CORPUSCULAR VOLUME 86.2 fl (82.0-101.0); MONOCYTE # 0.4 10^3/ul (0.3-0.9); MONOCYTES % 10.1 % (0.0-11.0); NEUTROPHIL # 2.1 10^3/ul (1.6-7.5); NEUTROPHILS % 59.7 % (39.0-77.0); NUCLEATED RED BLOOD CELLS% 0.8 /100WBC (0.0-0.0); RED BLOOD COUNT 3.05 10^6/ul (4.20-5.40); RED CELL DISTRIBUTION WIDTH 18.6 % (11.5-14.5)
[2019-04-25 05:42] LABS: ALANINE AMINOTRANSFERASE 108 IU/L (13-69); ALBUMIN 4.4 g/dl (3.3-4.9); ALBUMIN/GLOBULIN RATIO 1.18; ALKALINE PHOSPHATASE 220 IU/L (42-121); ANION GAP 14 (5-13); ASPARTATE AMINO TRANSFERASE 49 IU/L (15-46); BILIRUBIN,INDIRECT 0.6 mg/dl (0-1.1); BILIRUBIN,TOTAL 0.6 mg/dl (0.2-1.3); BLOOD UREA NITROGEN 14 mg/dl (7-20); CALCIUM 8.1 mg/dl (8.4-10.2); CARBON DIOXIDE 24 mmol/L (21-31); CHLORIDE 106 mmol/L (97-110); Estimated GFR > 60 mL/min (>60); GLUCOSE 118 mg/dl (70-220); LIPASE 219 U/L (23-300); POTASSIUM 3.1 mmol/L (3.5-5.1); SODIUM 144 mmol/L (135-144); TOTAL PROTEIN 8.1 g/dl (6.1-8.1)
[2019-04-25 05:51] LABS: PLATELET COUNT 26 10^3/UL (140-415); POSITIVE DIFF @See below
[2019-04-25] MEDS: POTASSIUM CHLORIDE (SR) 20 MEQ TAB PO ×2 (07:00→10:06)
[2019-04-25 11:17] LABS: ANISOCYTOSIS 1+ (0-0); BAND NEUTROPHILS % (M) 2 % (0-4); BURR CELLS 1+ (0-0); ERYTHROBLAST% (NRBC) (M) 1 % (0-0); GIANT THROMBO% (M) 1 % (0-0); LYMPHOCYTES #M 1.4 10^3/ul (0.8-2.9); LYMPHOCYTES % (M) 41 % (15-51); MONOCYTES % (M) 2 % (0-11); OVALOCYTES 1+ (0-0); PLASMAC%(M) 1 % (0); PLATELET ESTIMATE SIG DECREASED; POIKILOCYTOSIS 1+ (0-0); POLYCHROMASIA 1+ (0-0); SEG NEUT #M 1.9 10^3/ul (1.6-7.5); SEGMENTED NEUTROPHILS (M) % 54 % (39-77); SMUDGE%M 12 % (0-0); TOXIC GRANULATION 1+ (0-0)
[2019-04-25] MEDS: KETOROLAC 15 MG INJ IV (11:37)
[2019-04-25 15:46] LABS: TYPE AND SCREEN 1
[2019-04-26] MEDS: HYDROmorphONE 0.5 MG/0.5 ML SYG IV ×2 (00:13→12:20)
[2019-04-26 08:18] LABS: WHITE BLOOD COUNT 1.9 10^3/ul (4.8-10.8)
[2019-04-26 08:18] LABS: ABNORMAL IP MESSAGE 1; HEMATOCRIT 20.6 % (37.0-47.0); MEAN CORPUSCULAR HEMOGLOBIN 28.1 pg (29.0-33.0); MEAN CORPUSCULAR HGB CONC 31.6 g/dl (32.0-37.0); MEAN CORPUSCULAR VOLUME 89.2 fl (82.0-101.0); MEAN PLATELET VOLUME 10.4 fl (7.4-10.4); PLATELET COUNT 59 10^3/UL (140-415); RED BLOOD COUNT 2.31 10^6/ul (4.20-5.40); RED CELL DISTRIBUTION WIDTH 18.9 % (11.5-14.5)
[2019-04-26 08:21] LABS: POSITIVE DIFF @See below
[2019-04-26] MEDS: EMPAGLIFLOZIN 10 MG TABLET PO (08:21)
[2019-04-26] MEDS: ONDANSETRON 4 MG TAB PO (08:21)
[2019-04-26 08:22] LABS: ADD MAN DIFF? YES
[2019-04-26 08:23] LABS: HEMOGLOBIN 6.5 g/dl (12.0-16.0)
[2019-04-26 08:49] LABS: ANION GAP 6 (5-13); BLOOD UREA NITROGEN 17 mg/dl (7-20); CALCIUM 7.5 mg/dl (8.4-10.2); CARBON DIOXIDE 30 mmol/L (21-31); CHLORIDE 105 mmol/L (97-110); CREATININE 0.77 mg/dl (0.44-1.00); Estimated GFR > 60 mL/min (>60); GLUCOSE 95 mg/dl (70-220); POTASSIUM 3.8 mmol/L (3.5-5.1); SODIUM 141 mmol/L (135-144)
[2019-04-26 10:00] LABS: ANISOCYTOSIS 2+ (0-0); BAND NEUTROPHILS % (M) 2 % (0-4); BASOPHILS % (M) 2 % (0-2); EOSINOPHILS % (M) 1 % (0-7); ERYTHROBLAST% (NRBC) (M) 1 % (0-0); GIANT THROMBO% (M) 2 % (0-0); LYMPHOCYTES #M 0.7 10^3/ul (0.8-2.9); LYMPHOCYTES % (M) 41 % (15-51); MICROCYTOSIS 1+ (0-0); MONOCYTES % (M) 5 % (0-11); OVALOCYTES 1+ (0-0); PLATELET ESTIMATE DECREASED; POIKILOCYTOSIS 1+ (0-0); POLYCHROMASIA 1+ (0-0); REACTIVE LYMPHOCYTES% (M) 3 % (0-0); SEG NEUT #M 0.9 10^3/ul (1.6-7.5); SEGMENTED NEUTROPHILS (M) % 47 % (39-77); SMUDGE%M 4 % (0-0); TEAR DROP CELLS 1+ (0-0); TOXIC GRANULATION 1+ (0-0)
[2019-04-26 11:33] LABS: ABNORMAL IP MESSAGE 1; HEMATOCRIT 21.7 % (37.0-47.0); MEAN CORPUSCULAR HEMOGLOBIN 27.6 pg (29.0-33.0); MEAN CORPUSCULAR HGB CONC 30.9 g/dl (32.0-37.0); MEAN CORPUSCULAR VOLUME 89.3 fl (82.0-101.0); MEAN PLATELET VOLUME 11.3 fl (7.4-10.4); NUCLEATED RED BLOOD CELLS% 0.9 /100WBC (0.0-0.0); PLATELET COUNT 73 10^3/UL (140-415); RED BLOOD COUNT 2.43 10^6/ul (4.20-5.40)
[2019-04-26 11:33] LABS: WHITE BLOOD COUNT 2.2 10^3/ul (4.8-10.8)
[2019-04-26 11:44] LABS: POSITIVE DIFF @See below
[2019-04-26 11:45] LABS: HEMOGLOBIN 6.7 g/dl (12.0-16.0)
[2019-04-26 12:04] LABS: ADD MAN DIFF? YES
[2019-04-26 21:51] LABS: IMMEDIATE SPIN CROSSMATCH 1 2
[2019-04-27 01:50] LABS: OCCULT BLOOD STOOL NEGATIVE (NEGATIVE)
[2019-04-27 05:13] LABS: ADD MAN DIFF? NO
[2019-04-27 05:19] LABS: WHITE BLOOD COUNT 2.2 10^3/ul (4.8-10.8)
[2019-04-27 05:19] LABS: ABNORMAL IP MESSAGE 1; BASOPHILS % 0.5 % (0.0-2.0); HEMATOCRIT 31.5 % (37.0-47.0); HEMOGLOBIN 10.3 g/dl (12.0-16.0); LYMPHOCYTES # 0.9 10^3/ul (0.8-2.9); LYMPHOCYTES % 41.9 % (15.0-51.0); MEAN CORPUSCULAR HEMOGLOBIN 28.4 pg (29.0-33.0); MEAN CORPUSCULAR HGB CONC 32.7 g/dl (32.0-37.0); MEAN CORPUSCULAR VOLUME 86.8 fl (82.0-101.0); MEAN PLATELET VOLUME 11.2 fl (7.4-10.4); MONOCYTE # 0.3 10^3/ul (0.3-0.9); MONOCYTES % 13.1 % (0.0-11.0); PLATELET COUNT 70 10^3/UL (140-415); RED BLOOD COUNT 3.63 10^6/ul (4.20-5.40); RED CELL DISTRIBUTION WIDTH 17.1 % (11.5-14.5)
[2019-04-27 05:20] LABS: POSITIVE DIFF @See below
[2019-04-27 06:22] LABS: ANION GAP 9 (5-13); BLOOD UREA NITROGEN 11 mg/dl (7-20); CALCIUM 7.6 mg/dl (8.4-10.2); CARBON DIOXIDE 26 mmol/L (21-31); CHLORIDE 106 mmol/L (97-110); CREATININE 0.74 mg/dl (0.44-1.00); Estimated GFR > 60 mL/min (>60); GLUCOSE 98 mg/dl (70-220); POTASSIUM 3.3 mmol/L (3.5-5.1); SODIUM 141 mmol/L (135-144)
[2019-04-27] MEDS: ONDANSETRON 4 MG TAB PO (09:30)
[2019-04-27] MEDS: POTASSIUM CHLORIDE (SR) 20 MEQ TAB PO (09:30)
[2019-04-27] MEDS: EMPAGLIFLOZIN 10 MG TABLET PO (09:30)
[2019-04-27] MEDS: HYDROmorphONE 0.5 MG/0.5 ML SYG IV ×2 (11:03→16:46)
== END 2019-04-27 18:50 | disposition home or self-care (01) ==
LOC: E/R 02:26 → MS1 06:20
DX: R10.9 Unspecified abdominal pain (principal); D69.6 Thrombocytopenia, unspecified; C56.9 Malignant neoplasm of unspecified ovary; I10 Essential (primary) hypertension; E11.9 Type 2 diabetes mellitus without complications; D64.9 Anemia, unspecified
CPT/HCPCS: 36415; 36430; 80048; 80053; 82270; 83690; 85025; 86644; 86850; 86900; 86901; 86920; 86945; 96374; 96375; 99285-25; G0378

== ENCOUNTER 2019-05-10 17:04 | Emergency (ER) | payer OTHER ==
[2019-05-10] MEDS: SOD CHLORIDE 0.9% 1,000 ML IV (18:58)
[2019-05-10] MEDS: KETOROLAC 30 MG INJ IV (18:58)
[2019-05-10] MEDS: HYDROmorphONE 1 MG/ML SYG IV ×2 (18:58→20:24)
[2019-05-10] MEDS: ONDANSETRON 4 MG INJ IV ×3 (18:58→21:17)
[2019-05-10 18:59] LABS: ADD MAN DIFF? NO
[2019-05-10 19:04] LABS: WHITE BLOOD COUNT 6.1 10^3/ul (4.8-10.8)
[2019-05-10 19:04] LABS: BASOPHIL # 0.1 10^3/ul (0.0-0.1); BASOPHILS % 1.5 % (0.0-2.0); EOSINOPHILS % 0.5 % (0.0-7.0); HEMATOCRIT 42.1 % (37.0-47.0); HEMOGLOBIN 13.2 g/dl (12.0-16.0); LYMPHOCYTES # 0.9 10^3/ul (0.8-2.9); MEAN CORPUSCULAR HEMOGLOBIN 27.8 pg (29.0-33.0); MEAN CORPUSCULAR HGB CONC 31.4 g/dl (32.0-37.0); MEAN CORPUSCULAR VOLUME 88.8 fl (82.0-101.0); MEAN PLATELET VOLUME 11.3 fl (7.4-10.4); MONOCYTE # 0.9 10^3/ul (0.3-0.9); MONOCYTES % 14.5 % (0.0-11.0); NEUTROPHIL # 4.1 10^3/ul (1.6-7.5); NEUTROPHILS % 67.7 % (39.0-77.0); PLATELET COUNT 381 10^3/UL (140-415); RED BLOOD COUNT 4.74 10^6/ul (4.20-5.40); RED CELL DISTRIBUTION WIDTH 17.7 % (11.5-14.5)
[2019-05-10 19:22] LABS: ALANINE AMINOTRANSFERASE 54 IU/L (13-69); ALBUMIN 4.6 g/dl (3.3-4.9); ALBUMIN/GLOBULIN RATIO 1.06; ALKALINE PHOSPHATASE 138 IU/L (42-121); AMYLASE 116 U/L (11-123); ANION GAP 13 (5-13); ASPARTATE AMINO TRANSFERASE 41 IU/L (15-46); BILIRUBIN,INDIRECT 0.7 mg/dl (0-1.1); BILIRUBIN,TOTAL 0.7 mg/dl (0.2-1.3); BLOOD UREA NITROGEN 19 mg/dl (7-20); CALCIUM 9.1 mg/dl (8.4-10.2); CARBON DIOXIDE 25 mmol/L (21-31); CHLORIDE 102 mmol/L (97-110); CREATININE 0.99 mg/dl (0.44-1.00); Estimated GFR 58 mL/min (>60); GLUCOSE 103 mg/dl (70-220); LIPASE 87 U/L (23-300); POTASSIUM 3.3 mmol/L (3.5-5.1); SODIUM 140 mmol/L (135-144); TOTAL PROTEIN 8.9 g/dl (6.1-8.1)
[2019-05-10 19:24] LABS: INR 0.97
[2019-05-10 19:25] LABS: PARTIAL THROMBOPLASTIN TIME 25.6 Sec (23.0-35.0)
[2019-05-10] MEDS: FAMOTIDINE 20 MG INJ IV (21:17)
== END 2019-05-10 21:41 | disposition home or self-care (01) ==
LOC: E/R 17:04
DX: K80.20 Calculus of gallbladder without cholecystitis without obstruction (principal); C76.3 Malignant neoplasm of pelvis
CPT/HCPCS: 80053; 82150; 83690; 85025; 85610; 85730; 96374; 96375; 96376; 99284-25

== ENCOUNTER 2019-05-22 12:32 | Emergency (ER) | payer OTHER ==
[2019-05-22] MEDS ORDERED: SOD CHLORIDE 0.9% 0 ML IV (13:31)
[2019-05-22 13:43] LABS: ABNORMAL IP MESSAGE 1; HEMATOCRIT 31.1 % (37.0-47.0); HEMOGLOBIN 10.3 g/dl (12.0-16.0); MEAN CORPUSCULAR HGB CONC 33.1 g/dl (32.0-37.0); MEAN CORPUSCULAR VOLUME 87.6 fl (82.0-101.0); MEAN PLATELET VOLUME 13.1 fl (7.4-10.4); PLATELET COUNT 93 10^3/UL (140-415); RED BLOOD COUNT 3.55 10^6/ul (4.20-5.40); RED CELL DISTRIBUTION WIDTH 15.2 % (11.5-14.5)
[2019-05-22 13:43] LABS: WHITE BLOOD COUNT 2.4 10^3/ul (4.8-10.8)
[2019-05-22 13:56] LABS: ADD MAN DIFF? YES; POSITIVE DIFF @See below
[2019-05-22 14:06] LABS: ALANINE AMINOTRANSFERASE 53 IU/L (13-69); ALBUMIN 4.3 g/dl (3.3-4.9); ALBUMIN/GLOBULIN RATIO 1.38; ALKALINE PHOSPHATASE 110 IU/L (42-121); ANION GAP 20 (5-13); ASPARTATE AMINO TRANSFERASE 42 IU/L (15-46); BILIRUBIN,INDIRECT 0.9 mg/dl (0-1.1); BILIRUBIN,TOTAL 0.9 mg/dl (0.2-1.3); BLOOD UREA NITROGEN 13 mg/dl (7-20); CALCIUM 7.6 mg/dl (8.4-10.2); CARBON DIOXIDE 20 mmol/L (21-31); CHLORIDE 96 mmol/L (97-110); CREATININE 0.85 mg/dl (0.44-1.00); Estimated GFR > 60 mL/min (>60); GLUCOSE 80 mg/dl (70-220); POTASSIUM 3.3 mmol/L (3.5-5.1); SODIUM 136 mmol/L (135-144); TOTAL PROTEIN 7.4 g/dl (6.1-8.1)
[2019-05-22 14:16] LABS: TROPONIN-I < 0.012 ng/ml (0.000-0.120)
[2019-05-22] MEDS: SOD CHLORIDE 0.9% 1,000 ML IV (14:31)
[2019-05-22] MEDS: POTASSIUM CHLORIDE (SR) 20 MEQ TAB PO (14:43)
[2019-05-22 16:35] LABS: ANISOCYTOSIS 1+ (0-0); BAND NEUTROPHILS % (M) 4 % (0-4); GIANT THROMBO% (M) 2 % (0-0); LYMPHOCYTES #M 1.1 10^3/ul (0.8-2.9); LYMPHOCYTES % (M) 46 % (15-51); MICROCYTOSIS 1+ (0-0); MONOCYTE #M 0.3 10^3/ul (0.3-0.9); MONOCYTES % (M) 16 % (0-11); MYELOCYTES % (M) 2 % (0-0); PLATELET ESTIMATE DECREASED; POLYCHROMASIA 1+ (0-0); REACTIVE LYMPHOCYTES% (M) 2 % (0-0); SEG NEUT #M 0.7 10^3/ul (1.6-7.5); SEGMENTED NEUTROPHILS (M) % 30 % (39-77); SMUDGE%M 6 % (0-0)
== END 2019-05-22 15:58 | disposition home or self-care (01) ==
LOC: E/R 12:32
DX: R53.1 Weakness (principal); Z85.43 Personal history of malignant neoplasm of ovary
CPT/HCPCS: 80053; 84484; 85025; 86850; 86900; 86901; 86920; 93005; 96360; 99284-25

== ENCOUNTER 2019-05-25 14:39 | Emergency (ER) | payer OTHER ==
[2019-05-25] MEDS: morphine 4 MG/ML VIAL IV (18:22)
[2019-05-25] MEDS: ONDANSETRON 4 MG INJ IV (18:22)
[2019-05-25] MEDS: SOD CHLORIDE 0.9% 1,000 ML IV (18:22)
[2019-05-25 18:29] LABS: ABNORMAL IP MESSAGE 1; HEMATOCRIT 30.5 % (37.0-47.0); HEMOGLOBIN 9.7 g/dl (12.0-16.0); MEAN CORPUSCULAR HEMOGLOBIN 28.7 pg (29.0-33.0); MEAN CORPUSCULAR HGB CONC 31.8 g/dl (32.0-37.0); MEAN CORPUSCULAR VOLUME 90.2 fl (82.0-101.0); MEAN PLATELET VOLUME 12.3 fl (7.4-10.4); PLATELET COUNT 51 10^3/UL (140-415); RED BLOOD COUNT 3.38 10^6/ul (4.20-5.40); RED CELL DISTRIBUTION WIDTH 15.9 % (11.5-14.5)
[2019-05-25 18:29] LABS: WHITE BLOOD COUNT 3.3 10^3/ul (4.8-10.8)
[2019-05-25 18:31] LABS: POSITIVE DIFF @See below
[2019-05-25 18:32] LABS: ADD MAN DIFF? YES
[2019-05-25 18:52] LABS: ALANINE AMINOTRANSFERASE 42 IU/L (13-69); ALBUMIN 4.2 g/dl (3.3-4.9); ALBUMIN/GLOBULIN RATIO 1.16; ALKALINE PHOSPHATASE 87 IU/L (42-121); ANION GAP 16 (5-13); ASPARTATE AMINO TRANSFERASE 41 IU/L (15-46); BILIRUBIN,INDIRECT 0.4 mg/dl (0-1.1); BILIRUBIN,TOTAL 0.4 mg/dl (0.2-1.3); BLOOD UREA NITROGEN 12 mg/dl (7-20); CALCIUM 6.6 mg/dl (8.4-10.2); CARBON DIOXIDE 21 mmol/L (21-31); CHLORIDE 103 mmol/L (97-110); CREATININE 0.76 mg/dl (0.44-1.00); Estimated GFR > 60 mL/min (>60); GLUCOSE 90 mg/dl (70-220); POTASSIUM 3.1 mmol/L (3.5-5.1); SODIUM 140 mmol/L (135-144); TOTAL PROTEIN 7.8 g/dl (6.1-8.1)
[2019-05-25 19:02] LABS: TROPONIN-I < 0.012 ng/ml (0.000-0.120)
[2019-05-25] MEDS: POTASSIUM CHLORIDE (SR) 20 MEQ TAB PO (19:32)
[2019-05-25 19:38] LABS: ANISOCYTOSIS 1+ (0-0); BAND NEUTROPHILS % (M) 1 % (0-4); ERYTHROBLAST% (NRBC) (M) 2 % (0-0); GIANT THROMBO% (M) 6 % (0-0); LYMPHOCYTES #M 0.7 10^3/ul (0.8-2.9); LYMPHOCYTES % (M) 24 % (15-51); MICROCYTOSIS 1+ (0-0); MONOCYTE #M 0.3 10^3/ul (0.3-0.9); MONOCYTES % (M) 11 % (0-11); OVALOCYTES 1+ (0-0); PLATELET ESTIMATE SIG DECREASED; POIKILOCYTOSIS 1+ (0-0); REACTIVE LYMPHOCYTES% (M) 1 % (0-0); SEG NEUT #M 2.1 10^3/ul (1.6-7.5); SEGMENTED NEUTROPHILS (M) % 63 % (39-77); SMUDGE%M 47 % (0-0)
[2019-05-25 19:47] LABS: INR 0.98; PARTIAL THROMBOPLASTIN TIME 24.5 Sec (23.0-35.0); PROTIME 13.1 Sec (11.9-14.9)
== END 2019-05-25 21:19 | disposition home or self-care (01) ==
LOC: E/R 14:39
DX: M79.18 Myalgia, other site (principal); C56.9 Malignant neoplasm of unspecified ovary; E87.6 Hypokalemia; D61.818 Other pancytopenia; R07.9 Chest pain, unspecified; R40.2142 Coma scale, eyes open, spontaneous, at arrival to emergency department; R40.2362 Coma scale, best motor response, obeys commands, at arrival to emergency department; R40.2252 Coma scale, best verbal response, oriented, at arrival to emergency department
CPT/HCPCS: 36415; 70450; 71045; 80053; 84484; 85025; 85610; 85730; 93005; 96374; 96375; 99285-25

== ENCOUNTER 2019-05-28 11:31 | Inpatient (IN) | payer OTHER ==
[2019-05-28 12:37] LABS: ADD MAN DIFF? NO
[2019-05-28 12:39] LABS: WHITE BLOOD COUNT 5.4 10^3/ul (4.8-10.8)
[2019-05-28 12:39] LABS: ABNORMAL IP MESSAGE 1; BASOPHILS % 0.4 % (0.0-2.0); MEAN CORPUSCULAR HEMOGLOBIN 28.8 pg (29.0-33.0); MEAN CORPUSCULAR HGB CONC 32.1 g/dl (32.0-37.0); MEAN CORPUSCULAR VOLUME 89.5 fl (82.0-101.0); MEAN PLATELET VOLUME 12.6 fl (7.4-10.4); MONOCYTE # 0.5 10^3/ul (0.3-0.9); MONOCYTES % 9.3 % (0.0-11.0); NEUTROPHIL # 3.8 10^3/ul (1.6-7.5); NEUTROPHILS % 70.9 % (39.0-77.0); PLATELET COUNT 75 10^3/UL (140-415); RED BLOOD COUNT 3.13 10^6/ul (4.20-5.40); RED CELL DISTRIBUTION WIDTH 15.8 % (11.5-14.5)
[2019-05-28] MEDS: LORAZEPAM 2 MG INJ IV (12:41)
[2019-05-28] MEDS: SOD CHLORIDE 0.9% 1,000 ML IV (12:41)
[2019-05-28 13:02] LABS: CREATINE KINASE 260 IU/L (23-200)
[2019-05-28 13:02] LABS: POSITIVE DIFF @See below
[2019-05-28 13:06] LABS: ALANINE AMINOTRANSFERASE 33 IU/L (13-69); ALBUMIN 3.6 g/dl (3.3-4.9); ALBUMIN/GLOBULIN RATIO 1.24; ALKALINE PHOSPHATASE 68 IU/L (42-121); ANION GAP 15 (5-13); ASPARTATE AMINO TRANSFERASE 38 IU/L (15-46); BILIRUBIN,INDIRECT 0.6 mg/dl (0-1.1); BILIRUBIN,TOTAL 0.6 mg/dl (0.2-1.3); BLOOD UREA NITROGEN 9 mg/dl (7-20); CARBON DIOXIDE 22 mmol/L (21-31); CHLORIDE 104 mmol/L (97-110); CREATININE 0.76 mg/dl (0.44-1.00); Estimated GFR > 60 mL/min (>60); GLUCOSE 80 mg/dl (70-220); LIPASE 74 U/L (23-300); POTASSIUM 3.5 mmol/L (3.5-5.1); SODIUM 141 mmol/L (135-144); TOTAL PROTEIN 6.5 g/dl (6.1-8.1)
[2019-05-28] MEDS: POTASSIUM CHLORIDE 40 MEQ in SOD CHLORIDE 0.9% 1,000 ML IV (13:20)
[2019-05-28] MEDS ORDERED: POTASSIUM CHLORIDE (SR) 20 MEQ TAB PO (13:20)
[2019-05-28 13:22] LABS: CALCIUM 5.8 mg/dl (8.4-10.2)
[2019-05-28 13:48] LABS: MAGNESIUM 0.5 mg/dl (1.7-2.5)
[2019-05-28] MEDS: MAGNESIUM SULFATE 4 GM/100 ML 100 ML IVPB ×2 (14:39→18:22)
[2019-05-28] MEDS: CALCIUM GLUCONATE 10% 1 GM in DEXTROSE 5% 100 ML IVPB ×2 (14:39→18:22)
[2019-05-28] MEDS ORDERED: ACETAMINOPHEN 325 MG TAB PO (15:00)
[2019-05-28] MEDS ORDERED: ONDANSETRON 4 MG INJ IV (15:00)
[2019-05-28] MEDS: CALCIUM GLUCONATE 10% 2 GM in DEXTROSE 5% 100 ML IVPB (15:56)
[2019-05-28] MEDS: POTASSIUM CHLORIDE (SR) 20 MEQ TAB PO (16:41)
[2019-05-28] MEDS ORDERED: MAGNESIUM SULFATE 4 GM/100 ML 100 ML IVPB (17:00)
[2019-05-29 07:26] LABS: ANION GAP 7 (5-13); BLOOD UREA NITROGEN 4 mg/dl (7-20); CALCIUM 7.2 mg/dl (8.4-10.2); CARBON DIOXIDE 26 mmol/L (21-31); CHLORIDE 104 mmol/L (97-110); CREATININE 0.69 mg/dl (0.44-1.00); Estimated GFR > 60 mL/min (>60); GLUCOSE 76 mg/dl (70-220); MAGNESIUM 2.5 mg/dl (1.7-2.5); POTASSIUM 3.5 mmol/L (3.5-5.1); SODIUM 137 mmol/L (135-144)
[2019-05-29] MEDS: traMADol 50 MG TAB PO (11:52)
[2019-05-29] MEDS: CALCIUM GLUCONATE 10% 2 GM in DEXTROSE 5% 100 ML IVPB (12:09)
== END 2019-05-29 15:04 | disposition home or self-care (01) | DRG 641 ==
LOC: E/R 11:31 → TEL 14:46
DX: E83.51 Hypocalcemia (principal); C56.9 Malignant neoplasm of unspecified ovary; I10 Essential (primary) hypertension; E83.42 Hypomagnesemia; E11.9 Type 2 diabetes mellitus without complications; K21.9 Gastro-esophageal reflux disease without esophagitis
CPT/HCPCS: 36415; 80048; 80053; 82550; 83690; 83735; 84443; 85025; 93005; 96374; 96375; 99285-25

== ENCOUNTER 2019-06-06 09:30 | Observation (INO) | payer OTHER ==
[2019-06-06 10:37] LABS: WHITE BLOOD COUNT 1.6 10^3/ul (4.8-10.8)
[2019-06-06 10:37] LABS: ABNORMAL IP MESSAGE 1; HEMATOCRIT 29.7 % (37.0-47.0); HEMOGLOBIN 9.6 g/dl (12.0-16.0); MEAN CORPUSCULAR HEMOGLOBIN 29.5 pg (29.0-33.0); MEAN CORPUSCULAR HGB CONC 32.3 g/dl (32.0-37.0); MEAN CORPUSCULAR VOLUME 91.4 fl (82.0-101.0); MEAN PLATELET VOLUME 11.3 fl (7.4-10.4); PLATELET COUNT 200 10^3/UL (140-415); RED BLOOD COUNT 3.25 10^6/ul (4.20-5.40)
[2019-06-06] MEDS: SOD CHLORIDE 0.9% 1,000 ML IV (10:38)
[2019-06-06] MEDS: LORAZEPAM 2 MG INJ IV (10:38)
[2019-06-06 10:52] LABS: POSITIVE DIFF @See below
[2019-06-06 10:53] LABS: ADD MAN DIFF? YES
[2019-06-06 10:57] LABS: ALANINE AMINOTRANSFERASE 77 IU/L (13-69); ALBUMIN 4.1 g/dl (3.3-4.9); ALBUMIN/GLOBULIN RATIO 1.17; ALKALINE PHOSPHATASE 79 IU/L (42-121); ANION GAP 14 (5-13); ASPARTATE AMINO TRANSFERASE 85 IU/L (15-46); BILIRUBIN,INDIRECT 1.3 mg/dl (0-1.1); BILIRUBIN,TOTAL 1.3 mg/dl (0.2-1.3); BLOOD UREA NITROGEN 19 mg/dl (7-20); CALCIUM 6.9 mg/dl (8.4-10.2); CARBON DIOXIDE 25 mmol/L (21-31); CHLORIDE 100 mmol/L (97-110); CREATININE 0.88 mg/dl (0.44-1.00); Estimated GFR > 60 mL/min (>60); GLUCOSE 98 mg/dl (70-220); POTASSIUM 3.3 mmol/L (3.5-5.1); SODIUM 139 mmol/L (135-144); TOTAL PROTEIN 7.6 g/dl (6.1-8.1)
[2019-06-06 10:58] LABS: MAGNESIUM 0.7 mg/dl (1.7-2.5)
[2019-06-06] MEDS: traMADol 50 MG TAB PO (11:13)
[2019-06-06] MEDS: EMPAGLIFLOZIN 10 MG TABLET PO (11:14)
[2019-06-06] MEDS: MAGNESIUM SULFATE 2 GM/50 ML 50 ML IVPB ×3 (11:15→21:35)
[2019-06-06] MEDS: CALCIUM GLUCONATE 10% 1 GM in DEXTROSE 5% 100 ML IVPB (11:15)
[2019-06-06] MEDS: PANTOPRAZOLE (EC) 40 MG TAB PO (11:19)
[2019-06-06 11:38] LABS: ANISOCYTOSIS 2+ (0-0); BAND NEUTROPHILS % (M) 2 % (0-4); EOSINOPHILS % (M) 1 % (0-7); LYMPHOCYTES #M 0.4 10^3/ul (0.8-2.9); LYMPHOCYTES % (M) 27 % (15-51); MONOCYTES % (M) 2 % (0-11); OVALOCYTES 1+ (0-0); PLATELET ESTIMATE NORMAL; POIKILOCYTOSIS 1+ (0-0); RBC MORPHOLOGY COMMENT @See below; REACTIVE LYMPHOCYTES% (M) 2 % (0-0); SEG NEUT #M 1.1 10^3/ul (1.6-7.5); SEGMENTED NEUTROPHILS (M) % 66 % (39-77); SMUDGE%M 2 % (0-0); WBC MORPHOLOGY COMMENT @See below
[2019-06-06] MEDS: ONDANSETRON 4 MG INJ IV ×3 (14:42→22:49)
[2019-06-06 16:25] LABS: ANION GAP 7 (5-13); BLOOD UREA NITROGEN 15 mg/dl (7-20); CALCIUM 6.3 mg/dl (8.4-10.2); CARBON DIOXIDE 28 mmol/L (21-31); CHLORIDE 100 mmol/L (97-110); CREATININE 0.72 mg/dl (0.44-1.00); Estimated GFR > 60 mL/min (>60); GLUCOSE 96 mg/dl (70-220); MAGNESIUM 2.3 mg/dl (1.7-2.5); POTASSIUM 3.1 mmol/L (3.5-5.1); SODIUM 135 mmol/L (135-144)
[2019-06-06] MEDS: FILGRASTIM-AAFI 480 MCG/0.8 ML SYRINGE SC (17:02)
[2019-06-06] MEDS: POTASSIUM CHLORIDE 20 MEQ POWDER FOR ORAL SOLN PO ×2 (17:48→23:31)
[2019-06-06] MEDS: CALCIUM GLUCONATE 10% 2 GM in DEXTROSE 5% 100 ML IVPB (18:27)
[2019-06-06] MEDS: PROCHLORPERAZINE 10 MG TAB PO (21:33)
[2019-06-06] MEDS: morphine 2 MG INJ IV (21:43)
[2019-06-07 06:12] LABS: ADD MAN DIFF? NO
[2019-06-07 06:23] LABS: HEMATOCRIT 26.2 % (37.0-47.0); HEMOGLOBIN 8.4 g/dl (12.0-16.0); MEAN CORPUSCULAR HEMOGLOBIN 29.8 pg (29.0-33.0); MEAN CORPUSCULAR HGB CONC 32.1 g/dl (32.0-37.0); MEAN CORPUSCULAR VOLUME 92.9 fl (82.0-101.0); PLATELET COUNT 151 10^3/UL (140-415); RED BLOOD COUNT 2.82 10^6/ul (4.20-5.40); RED CELL DISTRIBUTION WIDTH 16.8 % (11.5-14.5)
[2019-06-07 06:23] LABS: WHITE BLOOD COUNT 1.5 10^3/ul (4.8-10.8)
[2019-06-07 06:24] LABS: ABNORMAL IP MESSAGE 1; BASOPHILS % 0.7 % (0.0-2.0); EOSINOPHILS % 0.7 % (0.0-7.0); LYMPHOCYTES # 0.3 10^3/ul (0.8-2.9); LYMPHOCYTES % 22.5 % (15.0-51.0); MEAN PLATELET VOLUME 11.2 fl (7.4-10.4); MONOCYTE # 0.1 10^3/ul (0.3-0.9); MONOCYTES % 4.6 % (0.0-11.0); NEUTROPHIL # 1.1 10^3/ul (1.6-7.5); NEUTROPHILS % 70.2 % (39.0-77.0)
[2019-06-07 06:51] LABS: POSITIVE DIFF @See below
[2019-06-07 07:11] LABS: ANION GAP 8 (5-13); BLOOD UREA NITROGEN 15 mg/dl (7-20); CALCIUM 7.6 mg/dl (8.4-10.2); CARBON DIOXIDE 28 mmol/L (21-31); CHLORIDE 100 mmol/L (97-110); CREATININE 0.74 mg/dl (0.44-1.00); Estimated GFR > 60 mL/min (>60); GLUCOSE 95 mg/dl (70-220); POTASSIUM 3.9 mmol/L (3.5-5.1); SODIUM 136 mmol/L (135-144)
[2019-06-07] MEDS: PANTOPRAZOLE (EC) 40 MG TAB PO (09:06)
[2019-06-07] MEDS: EMPAGLIFLOZIN 10 MG TABLET PO (09:11)
[2019-06-07] MEDS: CALCIUM GLUCONATE 10% 2 GM in DEXTROSE 5% 100 ML IVPB (12:26)
[2019-06-07] MEDS: ONDANSETRON 4 MG INJ IV (15:41)
[2019-06-07] MEDS: FILGRASTIM-AAFI 480 MCG/0.8 ML SYRINGE SC (16:53)
== END 2019-06-07 17:25 | disposition home or self-care (01) ==
LOC: 2NE 06-07 02:49 → E/R 09:30 → 2NE 11:47
DX: E83.51 Hypocalcemia (principal); I10 Essential (primary) hypertension; E83.41 Hypermagnesemia; E87.6 Hypokalemia; C56.9 Malignant neoplasm of unspecified ovary; D72.819 Decreased white blood cell count, unspecified; D63.8 Anemia in other chronic diseases classified elsewhere; E11.9 Type 2 diabetes mellitus without complications
CPT/HCPCS: 36415; 80048; 80053; 82962; 83735; 85025; 93005; 96361; 96365; 96368; 96375; 99285-25